=== PATIENT | male | born 1945 | race Caucasian/White ===

== ENCOUNTER 2016-08-08 10:36 | Inpatient (IN) | payer MEDICARE, OTHER ==
[2016-08-08 11:08] LABS: Hematocrit 40.3 % (42.0-52.0); Hemoglobin 12.7 gm/dL (13.5-18.0); Mean Cell Volume 85.9 fl (78-100); Mean Corpuscular Hemoglobin 27.1 pg (27-31); Mean Corpuscular Hgb Conc 31.5 g/dl (32-36); Mean Platelet Volume 9.2 fl (6.0-9.5); Neutrophil # 4.1 K/mm3 (1.3-6.0); Neutrophil % 70.8 % (42-75.0); Platelet Count 178 K/mm3 (150-450); Red Blood Count 4.69 M/mm3 (4.7-6.0); Red Cell Distribution Width 16.3 % (11.5-14.0); White Blood Count 5.8 K/mm3 (4.0-10.5)
[2016-08-08 11:27] LABS: Troponin I Less than 0.017 ng/ml (0.00-0.10)
[2016-08-08 11:30] LABS: Albumin * 3.4 gm/dl (3.4-5.0); Anion Gap 9.6 mmol/L (6.8-13.8); BUN/Creatinine Ratio 18.3 (9.0-21.6); Bilirubin, Total 0.6 mg/dL (0.0-1.1); Ca. Corrected For Albumin 8.7 mg/dL (8.4-10.2); Calcium * 8.5 mg/dL (7.9-10.9); Carbon Dioxide 31.5 mmol/L (24-32.6); Potassium 3.1 mmol/L (3.4-4.6); Total Protein 7.6 gm/dL (6.2-8.2)
[2016-08-08 11:31] LABS: BNP * 1757 pg/mL (5-350)
--- NOTE | 2016-08-08 11:35 | ERNOTE ---
Medical Problem HPI - Narrative Date of Service: 08/08/16 - General Chief Complaint: Fall Time Seen by Provider: 08/08/16 10:55 Source: patient, family, RN notes reviewed, old records Exam Limitations: clinical condition - Immun/Allergies/Home Medications Immunizations: IMMUNIZATION HX Immunizations Up to Date Yes History of Influenza Vaccine No Hx Pneumococcal Vaccination No Allergies/Adverse Reactions: Allergies No Known Allergies Allergy (Verified 08/08/16 10:46) Home Medications: HOME MEDICATIONS ALPRAZolam [Xanax] 1 mg PO TID PRN 07/10/14 [Last Taken Unknown] Aspirin 325 mg PO DAILY 07/10/14 [Last Taken Unknown] Glimepiride [Amaryl] 8 mg PO DAILY 07/10/14 [Last Taken Unknown] Loratadine [Claritin] 10 mg PO DAILY 07/10/14 [Last Taken Unknown] Simvastatin [Zocor] 20 mg PO DAILY 07/10/14 [Last Taken Unknown] metFORMIN HCL [Glucophage] 1,000 mg PO BID 07/10/14 [Last Taken Unknown] Amitriptyline HCl [Elavil] 50 mg PO HS 05/24/15 [Last Taken Unknown] Fluticasone Furoate [Veramyst] 55 mcg NS DAILY 05/24/15 [Last Taken Unknown] Potassium Chloride [K-Dur] 20 meq PO DAILY 05/24/15 [Last Taken Unknown] Pramipexole Di-HCl [Pramipexole ER] 4.5 mg PO HS 05/24/15 [Last Taken Unknown] Topiramate [Topamax] 100 mg PO DAILY 05/24/15 [Last Taken Unknown] buPROPion HCL [Wellbutrin XL] 150 mg PO DAILY 05/24/15 [Last Taken Unknown] oxyCODONE HCL [Oxycodone] 20 mg PO PRN PRN 05/24/15 [Last Taken Unknown] Furosemide [Lasix] 240 mg PO DAILY 05/16/16 [Last Taken Unknown] Clotrimazole/Betamet Diprop [Lotrisone Cream] 1 appl TP BID 08/08/16 [Last Taken Unknown] Hydrocortisone Acetate 30 mg RC BID PRN 08/08/16 [Last Taken Unknown] Ipratropium/Albuterol Sulfate [Iprat-Albut 0.5-3(2.5) mg/3 ml] 3 ml IH QID PRN 08/08/16 [Last Taken Unknown] Omeprazole [Prilosec] 20 mg PO DAILY 08/08/16 [Last Taken Unknown] Pregabalin [Lyrica] 75 mg PO BID 08/08/16 [Last Taken Unknown] sitaGLIPtin PHOSPHATE [Januvia] 100 mg PO DAILY 08/08/16 [Last Taken Unknown] - History of Present History Narrative: Elliott is a 70-year-old male brought to the emergency department from his home by ambulance for recurrent falls over the past week. He denies any specific injury , but reports generalized aches and pains. He also reports that he is not sleeping at night and cannot stay awake for any length of time during the day. He has a CPAP machine but has not been using it as directed. He denies any cough or fevers. He is being seen in the wound clinic for a chronic left lower leg wound. His SpO2 was 84% on room air when EMS arrived at his home. Review of Systems - Review of Systems Constitutional: Present: fatigue, malaise, decreased activity level. Absent: recent illness, fever, chills EYE: Present: no symptoms reported ENT: Present: no symptoms reported Respiratory: Absent: shortness of breath, cough Cardiology: Present: edema. Absent: chest pain, syncope Gastrointestinal/Abdominal: Absent: vomiting, diarrhea, abdominal pain, eating less, drinking less Genitourinary: Present: no symptoms reported Musculoskeletal: Present: muscle pain. Absent: neck pain, joint swelling Skin: Absent: lesions, lumps Neurological: Absent: headache, dizziness/light-headedness Endocrine: Present: no symptoms reported Hematologic/Lymphatic: Present: no symptoms reported Psych: Absent: anxiety, depressed - Patient's Past Medical History Patient History - Medical: Diabetes Type 2, Obesity Patient History - Cardiac/Respiratory: Hypertension, Hyperlipidemia, CPAP/BiPAP Home Use, Sleep Apnea Patient History - Cancer: Prostate Patient History - Surgical Procedures: Cancer Surgery, Colonoscopy, T & A, Other - Hemorrhoidectomy, Orthopedic - ORIF left ankle 2006, Urology - Prostatectomy Patient History - Other: None - Family History Father Family History - Medical: Mother Family History - Medical: , History Unknown Family History - Cardiac/Respiratory: History Unknown - Social History Living Situations: spouse Abuse History: No History of abuse Psych History: No pertinent hx Does anyone smoke in the home?: Yes Smoking Status: Current every day smoker Cigarettes Packs Per Day: 0.3 Have you smoked in the past 12 months: Yes Alcohol Use: occasionally Drug Use: none - Immunizations Immunizations Up to Date: Yes Hx Pneumococcal Vaccination: No History of Influenza Vaccine: No Physical Exam - Physical Exam General Appearance: Present: no apparent distress, obese, sleeping/easy to arouse, other - Poor hygiene, very dirty Respiratory: Present: chest nontender, accessory muscle use, decreased breath sounds, expiration (prolonged) Cardiovascular/Chest: Present: regular rate, rhythm, no murmur. Absent: normal peripheral pulses Peripheral Pulses: N=norm/S=strong/W=weak/B=bound/A=absent: Dorsalis-pedis (R): Weak, Dorsalis-pedis (L): Weak Gastrointestinal/Abdominal: Present: normal bowel sounds, nontender, distended Extremity Exam: Present: non-tender, pedal edema, extremity edema - severe pitting edema to bilateral lower legs Neurological Exam: Present: oriented, normal mood/affect, no motor/sensory deficits, other - somnolent, arouses easily and answers questions appropriately but falls asleep during conversation Skin Exam: Present: normal color, warm/dry ED Progress - Results and Orders Patient's Lab Results:: I have reviewed the patient's lab results. - Vital Signs Patient's Vital Signs:: I have reviewed the patient's vital signs. Vital Signs: Vital Signs 08/08/16 10:39 Temperature 36.6 C Pulse Rate 91 Respiratory 19 Rate O2 Sat by Pulse 99 Oximetry - EKG EKG: NSR, premature ventricular contraction, other - New 1st degree AVB EKG read: Reviewed by me - X-Ray X-Ray #1 X-Ray: chest Interpretation: Reviewed by me X-ray Comments: TECHNIQUE: Single portable AP view of the chest was obtained at 1206 hours. COMPARISONS: 05/24/2015 FINDINGS: Chest Single View *: Hypoinflated lungs. Bilateral basilar opacities are suggested. Increased vascular and peripheral lung markings are present. No pneumothorax or pleural fluid collections apparent. Large cardiomegaly, grossly stable. Somewhat prominent appearance of the right paratracheal region. Trachea is in normal position given patient positioning. Osseous structures are grossly intact. IMPRESSION: 1. Bilateral basilar opacities suggestive of atelectasis versus pneumonia. 2. Pulmonary vascular congestion/interstitial edema suggested. 3. Large cardiomegaly. 4. Prominence of the right paratracheal region, which could be related to systemic venous congestion but consider lymphadenopathy. Electronically signed by Gregory Meredith M.D.. - Progress/Reassessment Chief Complaint: Fall Progress:: Unchanged Plan - Plan Plan: Patient's SpO2 has been 100% with O2 at 1 liter despite EMS report of hypoxia on their arrival. Patient has continued to be somnolent with his respiratory rate dropping as low as 7 while he is sleeping, but he is still maintaining his O2 sat. His blood gas showed a mild respiratory acidosis, he has no previous available for comparison. His CHF has worsened with his BNP currently at 1755 when it was only 211 approximately a year ago. His chest xray shows pulmonary congestion/interstitial edema, as well as bibasilar atelectasis vs. infiltrates. His lab work is otherwise stable. Patient's PCP, Dr. Vásquez, contacted regarding admission. Will admit acute status to med/surg for CHF and possible pneumonia. Patient's living situation is very concerning as he lives at home with his , who is also in frail health, and he has been falling frequently and appears to not be caring for himself well given his dirty condition. Departure - Departure Clinical Impression: Frequent falls, Somnolence Congestive heart failure Qualifiers: Congestive heart failure type: unspecified congestive heart failure type Congestive heart failure chronicity: acute on chronic Qualified Code(s): I50.9 - Heart failure, unspecified Pneumonia Qualifiers: Pneumonia type: due to unspecified organism Laterality: bilateral Lung location : lower lobe of lung Qualified Code(s): J18.9 - Pneumonia, unspecified organism Disposition: [facility] Condition: Fair Referrals: Jonathan Vásquez DO [Staff Physician] -
--- OUTSIDE RECORDS SUMMARY | 2016-08-08 11:49 | XMS REPORT | Continuity of Care Document ---
:1945 Author Organization [facility] ([facility]) Address [address] [place] [address] Phone [phone] Care Team Providers Name Role Phone Jonathan Vásquez Primary Care Provider [phone] Source Comments This disclosure is being made pursuant to the Care Everywhere program, applicable federal and state laws, and may not contain all informaitonavailable regarding this patient.[facility] ([facility]) Active Allergies and Adverse Reactions Allergen Noted Date Severity Reactions Comments Hay Fever And Allergy Relief 11/27/2014 Rhinorrhea Current Medications Prescription Sig. Disp. Refills Start Date End Date Status gabapentin PO Take by mouth 3 Active times daily. levofloxacin PO Take by mouth 2 Active times daily. omeprazole PO Take by mouth 2 Active times daily. docusate PO Take by mouth 2 Active times daily. aspirin 325 mg EC tablet Take 325 mg by mouth Active daily. FUROSEMIDE (LASIX PO) Take by mouth Active daily. PRAMIPEXOLE DI-HCL Take by mouth at Active (MIRAPEX PO) bedtime. ZOLPIDEM TARTRATE Take by mouth at Active (AMBIEN PO) bedtime. melatonin PO Take by mouth at Active bedtime. morpHINE 15 mg tablet Take 15 mg by mouth Active as needed. OXYCODONE 20 mg 10/31/2014 Active immediate release tablet GLIMEPIRIDE 4 mg tablet 11/11/2014 Active METFORMIN 500 mg tablet Take 500 mg by mouth 09/30/2014 Active 2 times daily OMEPRAZOLE 20 mg enteric 10/22/2014 Active coated capsule SIMVASTATIN 20 mg tablet 09/11/2014 Active fluticasone 50 Use 2 Sprays into Active mcg/Actuation nasal both nostrils daily spray triamcinolone 0.1 % Apply topically 2 Active cream times daily Apply a thin layer to affected area. 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 Unspecified osteomyelitis, ankle and foot 06/16/2007 Pain in limb 06/10/2007 Immunizations Name Dates Previously Given Next Due Hepatitis B, unspecified 01/14/2007 Social History Tobacco Use Types Packs/Day Years Used Date Never Smoker Last Filed Vital Signs Vital Sign Reading Time Taken Blood Pressure 132/71 11/27/2014 12:02 PM CDT Pulse 91 11/27/2014 12:02 PM CDT Temperature 36.8 C (98.2 F) 11/27/2014 12:02 PM CDT Respiratory Rate 18 12/13/2007 9:51 AM CDT Height 1.803 m (5' 10.98") 11/27/2014 12:02 PM CDT Weight 152.6 kg (336 lb 6.8 oz) 11/27/2014 12:02 PM CDT Body Mass Index 46.94 11/27/2014 12:02 PM CDT Oxygen Saturation 98% 12/13/2007 9:51 AM CDT Plan of Care Health Maintenance Due Date Last Done Comments HCV Screening 1945 Tdap Vaccine 10/03/1955 Lipid Disorder Screening 1962 Td Vaccine 1962 Colonoscopy 1994 Prostate Cancer Screening 1994 Zoster Vaccine 2004 Hepatitis B Vaccine (2 of 3 - Primary Series) 02/11/2007 01/14/2007 Pneumococcal Vaccine (1 of 2 - PCV13) 2009 Influenza Vaccine: Seasonal (#1) 10/15/2015 Results from Last 3 Months Not on file
[2016-08-08 12:20] LABS: Urine Bilirubin Negative (NEGATIVE); Urine Blood Negative /ul (NEGATIVE); Urine Ketone Negative (NEGATIVE); Urine Nitrite Negative (NEGATIVE); Urine Protein Negative (NEGATIVE); Urine Specific Gravity 1.025 SP.GR. (1.005-1.030); Urine Urobilinogen Normal (NORMAL); Urine pH 5.5 pH (5.0-7.0)
[2016-08-08 12:29] LABS: Urine Appearance Clear; Urine Bacteria None Seen; Urine Color Dark Yellow; Urine RBC None Seen /hpf (0-5); Urine WBC None Seen /hpf (0-5)
--- OUTSIDE RECORDS SUMMARY | 2016-08-08 13:25 | XMS REPORT | Continuity of Care Document ---
:1945 Author Organization [facility] ([facility]) Address [address] [place] [address] Phone [phone] Care Team Providers Name Role Phone Jonathan Vásquez Primary Care Provider [phone] Source Comments This disclosure is being made pursuant to the Care Everywhere program, applicable federal and state laws, and may not contain all informaitonavailable regarding this patient.[facility] ([facility]) Active Allergies and Adverse Reactions Allergen [...]
[2016-08-08] MEDS ORDERED: AZITHROMYCIN 250 MG TABLET PO ONE (13:49)
[2016-08-08] MEDS ORDERED: AZITHROMYCIN 250 MG TABLET ONE (13:50)
[2016-08-08] MEDS ORDERED: POTASSIUM CHLORIDE 20 MEQ TABLET.SA PO ONE ×2 (15:32→19:26)
--- NOTE | 2016-08-08 15:32 | HP ---
Chief Complaint - Chief Complaint Date of Service: 08/08/16 Time of Service: 15:32 Chief Complaint: Fatigue, shortness of breath, increased weight History of Present Illness: Elliott is a 70 yo male that presented to the [facility] ER with increasing falls, weakness, and somnolence. He has had more falls from dizziness and weakness. His reports he just falls asleep anywhere and has fallen because of these episodes as well. No fever, chills, worsening cough. He has a CPAP machine at home but does not use it because he cannot fall asleep with the mask on. - Patient's Past Medical History Patient History - Medical: Diabetes Type 2, Obesity Patient History - Cardiac/Respiratory: CHF, COPD, Hypertension, Hyperlipidemia, CPAP/BiPAP Home Use, Sleep Apnea Patient History - Cancer: Prostate Patient History - Surgical Procedures: Cancer Surgery, Colonoscopy, T & A, Other , Orthopedic, Urology Patient History - Other: None - Family History Father Family History - Medical: , History Unknown Family History - Cardiac/Respiratory: History Unknown Family History - Cancer: History Unknown Mother Family History - Medical: , History Unknown Family History - Cardiac/Respiratory: History Unknown Family History - Cancer: History Unknown - Social History Living Situations: spouse Abuse History: No History of abuse Psych History: No pertinent hx Does anyone smoke in the home?: Yes Smoking Status: Current every day smoker Cigarettes Packs Per Day: 0.3 Have you smoked in the past 12 months: Yes Do you dip or chew tobacco: No Patient requests Smoking Cessation Consult: No Initiate information on Smoking Cessation: No Alcohol Use: occasionally Drug Use: none - Immunizations Immunizations Up to Date: Yes Hx Pneumococcal Vaccination: No History of Influenza Vaccine: No Review Of Systems (GEN) - Review of Systems Generalized/Overall Review: Present: Weakness, Fatigue, Weight gain. Absent: Chills, Fever EENTM: Present: No Symptoms Reported Respiratory: Present: No Symptoms Reported Cardiac: Present: Edema Abdominal: Present: No Symptoms Reported Genitourinary: Present: No Symptoms Reported Musculoskeletal: Present: No Symptoms Reported Neurological: Present: No Symptoms Reported Skin: Present: No Symptoms Reported Endocrine: Present: No Symptoms Reported Immunizations: IMMUNIZATION HX Immunizations Up to Date Yes History of Influenza Vaccine No Hx Pneumococcal Vaccination No Allergies/Adverse Reactions: Allergies Allergy/AdvReac Type Severity Reaction Status Date / Time topiramate [From Topamax] AdvReac Intermediate lethargy Verified 08/21/16 10:52 Home Medications: HOME MEDICATIONS ALPRAZolam [Xanax] 1 mg PO TID PRN 07/10/14 [Last Taken Unknown] Aspirin 325 mg PO DAILY 07/10/14 [Last Taken Unknown] Glimepiride [Amaryl] 8 mg PO DAILY 07/10/14 [Last Taken Unknown] Loratadine [Claritin] 10 mg PO DAILY 07/10/14 [Last Taken Unknown] Simvastatin [Zocor] 20 mg PO HS 07/10/14 [Last Taken Unknown] metFORMIN HCL [Glucophage] 1,000 mg PO BID 07/10/14 [Last Taken Unknown] Amitriptyline HCl [Elavil] 50 mg PO HS 05/24/15 [Last Taken Unknown] Fluticasone Furoate [Veramyst] 2 sprays NS DAILY 05/24/15 [Last Taken Unknown] Potassium Chloride [K-Dur] 20 meq PO DAILY 05/24/15 [Last Taken Unknown] buPROPion HCL [Wellbutrin Xl] 150 mg PO DAILY 05/24/15 [Last Taken Unknown] oxyCODONE HCL [Oxycodone] 20 mg PO Q6H PRN 05/24/15 [Last Taken Unknown] Clotrimazole/Betamet Diprop [Lotrisone Cream] 1 appl TP BID 08/08/16 [Last Taken Unknown] Hydrocortisone Acetate 30 mg RC BID PRN 08/08/16 [Last Taken Unknown] Ipratropium/Albuterol Sulfate [Iprat-Albut 0.5-3(2.5) mg/3 ml] 3 ml IH QID PRN 08/08/16 [Last Taken Unknown] Omeprazole [Prilosec] 20 mg PO DAILY 08/08/16 [Last Taken Unknown] Pregabalin [Lyrica] 75 mg PO BID 08/08/16 [Last Taken Unknown] sitaGLIPtin PHOSPHATE [Januvia] 100 mg PO DAILY 08/08/16 [Last Taken Unknown] Bumetanide 2 mg PO BID PRN #60 tablet 08/10/16 [Last Taken Unknown] Calcium Carbonate [Calcium] 500 mg PO DAILY 08/20/16 [Last Taken Unknown] Furosemide [Lasix] 240 mg PO DAILY 08/20/16 [Last Taken Unknown] Pramipexole Di-HCl [Mirapex] 4.5 mg PO HS 08/20/16 [Last Taken Unknown] Zolpidem Tartrate [Ambien] 5 mg PO HS 08/20/16 [Last Taken Unknown] predniSONE [Prednisone] 20 mg PO DAILY 08/20/16 [Last Taken Unknown] Exam - Exam Vital Signs: Vital Signs - Last Taken Temp 36.4 C L 08/08/16 14:38 Pulse 84 08/08/16 14:38 Resp 12 08/08/16 14:38 BP 125/66 08/08/16 14:38 Pulse Ox 100 08/08/16 14:38 Constitutional: Present: Somnolent Eye Exam: bilateral eye: normal inspection Respiratory: Present: decreased breath sounds Cardiovascular/Chest: Present: regular rate, rhythm, edema - 3+ Abdomen: Present: Normal bowel sounds, soft, nontender, nondistended Skin Exam: Present: normal color, warm/dry, no cyanosis Diagnostic Studies: Laboratory Results WBC 5.8 K/mm3 (4.0-10.5) 08/08/16 11:02 RBC 4.69 M/mm3 (4.7-6.0) L 08/08/16 11:02 Hgb 12.7 gm/dL (13.5-18.0) L 08/08/16 11:02 Hct 40.3 % (42.0-52.0) L 08/08/16 11:02 MCV 85.9 fl (78-100) 08/08/16 11:02 MCH 27.1 pg (27-31) 08/08/16 11:02 MCHC 31.5 g/dl (32-36) L 08/08/16 11:02 RDW 16.3 % (11.5-14.0) H 08/08/16 11:02 Plt Count 178 K/mm3 (150-450) 08/08/16 11:02 MPV 9.2 fl (6.0-9.5) 08/08/16 11:02 Immature Gran % (Auto) 0.20 % (0.001-0.429) 08/08/16 11:02 Immature Gran # (Auto) 0.01 K/mm3 (0.000-0.0310) 08/08/16 11:02 Neutrophils % 70.8 % (42-75.0) 08/08/16 11:02 Lymphocytes % 19.5 % (20-51) L 08/08/16 11:02 Monocytes % 6.4 % (0.0-9) 08/08/16 11:02 Eosinophils % 2.8 % (0.0-3.0) 08/08/16 11:02 Basophils % 0.3 % (0.0-1.0) 08/08/16 11:02 Nucleated RBC % 0.0 k/mm3 (0-1) 08/08/16 11:02 Neutrophils # 4.1 K/mm3 (1.3-6.0) 08/08/16 11:02 Lymphocytes # 1.1 k/mm3 (1.5-3.5) L 08/08/16 11:02 Monocytes # 0.4 k/mm3 (0.0-1.0) 08/08/16 11:02 Eosinophils # 0.2 k/mm3 (0.0-0.7) 08/08/16 11:02 Absolute Basophils 0.0 k/mm3 (0.0-0.1) 08/08/16 11:02 pCO2 53.9 mmHg (35.0-48.0) H 08/08/16 11:05 pO2 60.2 mmHg (83.0-108.0) L 08/08/16 11:05 HCO3 27.2 mmol/L (21.0-28.0) 08/08/16 11:05 Total CO2 28.9 mmol/L (19.0-24.0) H 08/08/16 11:05 Base Excess 0.3 mmol/L (-2.0-3.0) 08/08/16 11:05 ABG pH 7.32 (7.35-7.45) L 08/08/16 11:05 ABG O2 Sat (Measured) 88.7 % (94.0-98.0) L 08/08/16 11:05 Sodium 142 mmol/L (132-142) 08/08/16 11:02 Plasma Sodium 142 mmol/L (130-142) 08/08/16 11:02 Potassium 3.1 mmol/L (3.4-4.6) L 08/08/16 11:02 Chloride 104 mmol/L (97-106) 08/08/16 11:02 Carbon Dioxide 31.5 mmol/L (24-32.6) 08/08/16 11:02 Anion Gap 9.6 mmol/L (6.8-13.8) 08/08/16 11:02 BUN 26 mg/dL (6-23) H 08/08/16 11:02 Creatinine 1.42 mg/dL (0.4-1.4) H 08/08/16 11:02 Est GFR (Non-Af Amer) 52 mL/min (60-130) L 08/08/16 11:02 BUN/Creatinine Ratio 18.3 (9.0-21.6) 08/08/16 11:02 Random Glucose 116 mg/dL (70-110) H 08/08/16 11:02 Lactic Acid, Venous 1.1 mmol/L (0.4-1.9) 08/08/16 11:02 Calcium 8.5 mg/dL (7.9-10.9) 08/08/16 11:02 Calcium Adj for Albumin 8.7 mg/dL (8.4-10.2) 08/08/16 11:02 Total Bilirubin 0.6 mg/dL (0.0-1.1) 08/08/16 11:02 AST 23 U/L (0-48) 08/08/16 11:02 ALT 23 U/L (19-67) 08/08/16 11:02 Alkaline Phosphatase 96 U/L (50-170) 08/08/16 11:02 Troponin I Less than 0.017 ng/ml (0.00-0.10) 08/08/16 11:02 B-Natriuretic Peptide 1757 pg/mL (5-350) H 08/08/16 11:02 Total Protein 7.6 gm/dL (6.2-8.2) 08/08/16 11:02 Albumin 3.4 gm/dl (3.4-5.0) 08/08/16 11:02 Urine Color Dark yellow 08/08/16 11:20 Urine Appearance Clear 08/08/16 11:20 Urine pH 5.5 pH (5.0-7.0) 08/08/16 11:20 Ur Specific [place] 1.025 SP.GR. (1.005-1.030) 08/08/16 11:20 Urine Protein Negative mg/dL (NEGATIVE) 08/08/16 11:20 Urine Glucose (UA) Negative mg/dL (NEGATIVE) 08/08/16 11:20 Urine Ketones Negative mg/dL (NEGATIVE) 08/08/16 11:20 Urine Blood Negative /ul (NEGATIVE) 08/08/16 11:20 Urine Nitrate Negative (NEGATIVE) 08/08/16 11:20 Urine Bilirubin Negative mg/dl (NEGATIVE) 08/08/16 11:20 Urine Urobilinogen Normal EU/dl (NORMAL) 08/08/16 11:20 Ur Leukocyte Esterase Negative /ul (NEGATIVE) 08/08/16 11:20 Urine RBC None seen /hpf (0-5) 08/08/16 11:20 Urine WBC None seen /hpf (0-5) 08/08/16 11:20 Ur Epithelial Cells None seen /hpf (0-5) 08/08/16 11:20 Urine Bacteria None seen (NONE) 08/08/16 11:20 Urine Culture Comments No culture indicated 08/08/16 11:20 Assessment/Plan - Assessment/Plan (1) Altered mental status Assessment: Patient with altered mental status, hypercapnea without acidosis, lower extremity edema. Causes may be CHF and will diurese, COPD (however without acidosis this appears to be chronic and compensated and not likely cause to altered mentation, medication (he is on multiple sedating medications), and Obstructive sleep apnea with CPAP non-compliance. Will use CPAP while in hospital. Problem: Acute Qualifiers: Altered mental status type: somnolence Qualified Code(s): R40.0 - Somnolence (2) Frequent falls Problem: Acute (3) Lethargy Problem: Acute
[2016-08-08] MEDS ORDERED: predniSONE 20 MG TABLET PO ONE (15:33)
[2016-08-08] MEDS ORDERED: ALBUTEROL SULFATE/IPRATROPIUM 3 ML NEBU IH PRN (15:34)
[2016-08-08] MEDS ORDERED: FUROSEMIDE 10 MG/ML VIAL IV ONE (15:34)
[2016-08-08] MEDS ORDERED: oxyCODONE HCL 5 MG TABLET PO PRN ×2 (15:34→20:05)
[2016-08-08] MEDS ORDERED: POTASSIUM CHLORIDE 20 MEQ TABLET.SA ONE (20:34)
[2016-08-08] MEDS: SIMVASTATIN 20 MG TABLET PO SCH (20:54)
[2016-08-08] MEDS: AMITRIPTYLINE HCL 50 MG TABLET PO SCH (20:54)
[2016-08-08] MEDS: PREGABALIN 75 MG CAPSULE PO SCH (20:56)
[2016-08-08] MEDS: ALPRAZolam 1 MG TABLET PO PRN (21:28)
[2016-08-08] MEDS: rOPINIRole HCL 1 MG TABLET PO SCH (21:28)
[2016-08-09] MEDS: PANTOPRAZOLE SODIUM 20 MG TABLET.DR PO SCH (07:07)
[2016-08-09] MEDS: PRAMIPEXOLE DI HCL 4.5 MG PO SCH ×2 (07:45→21:13)
[2016-08-09] MEDS ORDERED: POTASSIUM CHLORIDE 20 MEQ TABLET.SA PO SCH (09:00)
[2016-08-09] MEDS: ASPIRIN 325 MG TABLET.DR PO SCH (09:02)
[2016-08-09] MEDS: sitaGLIPtin PHOSPHATE 50 MG TABLET PO SCH (09:02)
[2016-08-09] MEDS: GLIMEPIRIDE 4 MG TABLET PO SCH (09:02)
[2016-08-09] MEDS: POTASSIUM CHLORIDE 20 MEQ TABLET.SA PO SCH (09:03)
[2016-08-09] MEDS: predniSONE 20 MG TABLET PO SCH (09:03)
[2016-08-09] MEDS: buPROPion HCL 150 MG TAB.SR.24H PO SCH (09:03)
[2016-08-09] MEDS: PREGABALIN 75 MG CAPSULE PO SCH ×2 (09:08→21:14)
[2016-08-09] MEDS ORDERED: FUROSEMIDE 10 MG/ML VIAL IV ONE ×2 (09:51→11:15)
[2016-08-09 10:13] LABS: Albumin * 3.3 gm/dl (3.4-5.0); Anion Gap 8.5 mmol/L (6.8-13.8); BUN/Creatinine Ratio 19.2 (9.0-21.6); Bilirubin, Total 0.4 mg/dL (0.0-1.1); Ca. Corrected For Albumin 8.9 mg/dL (8.4-10.2); Calcium * 8.7 mg/dL (7.9-10.9); Carbon Dioxide 33.4 mmol/L (24-32.6); Potassium 3.9 mmol/L (3.4-4.6); Total Protein 7.7 gm/dL (6.2-8.2)
--- NOTE | 2016-08-09 10:47 | PN ---
Subjective - Date and Time Seen Date: 08/09/16 Time: 10:43 Subjective Narrative: Reports feeling better. He does not recall having good urine output, but chart indicates 1L of urine out after lasix dose yesterday afternoon. He reports fatigue, shortness of breath, and edema that are still a little worse than his usual. Objective - Vitals Vitals: Last Vital Signs Temp 37 C 08/09/16 07:46 Pulse 88 08/09/16 07:46 Resp 24 H 08/09/16 07:46 BP 132/68 08/09/16 07:46 Pulse Ox 94 08/09/16 07:46 - Abnormal Lab Findings Abnormal Lab Findings: Abnormal Lab Results 08/09/16 Range/Units 09:53 Sodium 143 H (132-142) mmol/L Plasma Sodium 144 H (130-142) mmol/L Carbon Dioxide 33.4 H (24-32.6) mmol/L BUN 24 H (6-23) mg/dL Random Glucose 138 H (70-110) mg/dL Albumin 3.3 L (3.4-5.0) gm/dl - Exam Constitutional: Present: Alert, Oriented x3, Cooperative ENT Exam: Present: hearing grossly normal Respiratory: Present: lungs clear, normal breath sounds, no respiratory distress Cardiovascular/Chest: Present: regular rate, rhythm, edema - 2+ Abdomen: Present: Normal bowel sounds, soft, nontender, no hepatospenomegaly Assessment/Plan - Problems/Diagnosis (1) Acute respiratory failure Problem: Acute Narrative: Acute respiratory failure, secondary to CHF exacerbation and COPD exacerbation. Feeling better. Will wean from oxygen. Give additional dose of lasix 100mg IV now and monitor response with strict I/O. Continue antibiotics and steroids for COPD exacerbation based on hypercapnea and hypoxia. May redose lasix later today if needed. Lungs are improved, patient is more awake then yesterday. Anticipate discharge in 1-2 days. Will attempt to find a home dose of diuretics to keep him stable. (2) CHF exacerbation Problem: Acute (3) COPD exacerbation Problem: Acute
[2016-08-09] MEDS ORDERED: MECLIZINE HCL 25 MG TABLET PO PRN (17:16)
[2016-08-09] MEDS ORDERED: rOPINIRole HCL 1 MG TABLET PO SCH (21:00)
[2016-08-09] MEDS: rOPINIRole HCL 1 MG TABLET PO SCH (21:06)
[2016-08-09] MEDS: AMITRIPTYLINE HCL 50 MG TABLET PO SCH (21:06)
[2016-08-09] MEDS: SIMVASTATIN 20 MG TABLET PO SCH (21:06)
[2016-08-10] MEDS: ALPRAZolam 1 MG TABLET PO PRN (01:40)
[2016-08-10] MEDS: PANTOPRAZOLE SODIUM 20 MG TABLET.DR PO SCH (06:50)
[2016-08-10] MEDS: sitaGLIPtin PHOSPHATE 50 MG TABLET PO SCH (08:52)
[2016-08-10] MEDS: ASPIRIN 325 MG TABLET.DR PO SCH (08:52)
[2016-08-10] MEDS: POTASSIUM CHLORIDE 20 MEQ TABLET.SA PO SCH (08:52)
[2016-08-10] MEDS: GLIMEPIRIDE 4 MG TABLET PO SCH (08:52)
[2016-08-10] MEDS: predniSONE 20 MG TABLET PO SCH (08:53)
[2016-08-10] MEDS: buPROPion HCL 150 MG TAB.SR.24H PO SCH (08:53)
[2016-08-10] MEDS: PREGABALIN 75 MG CAPSULE PO SCH (08:59)
[2016-08-10] MEDS ORDERED: BUMETANIDE 1 MG TABLET PO ONE (11:15)
[2016-08-10 18:16] VITALS: BP 140/69
--- NOTE | 2016-08-10 18:46 | DS ---
(1) Acute respiratory failure Diagnosis(s): Elliott was admitted with acute respiratory failure with hypercapnea, although this may have been more acute on chronic with evidence of chronic compensation given there was no respiratory acidosis. Breathing improved with diuresis. Problem: Acute Qualifiers: Respiratory failure complication: hypercapnia Qualified Code(s): J96.02 - Acute respiratory failure with hypercapnia (2) CHF exacerbation Diagnosis(s): Patient with shortness of breath and lower extremity edema worsening. He was treated with IV lasix and then give oral bumex which he thought worked better than his oral lasix. Will discharge to home on oral bumex for control of chronic fluid state. He will follow up in a week in clinic to discuss if he feels lasix vs bumex works better. Problem: Acute Qualifiers: Congestive heart failure type: diastolic Qualified Code(s): I50.33 - Acute on chronic diastolic (congestive) heart failure (3) COPD exacerbation Problem: Acute (4) Altered mental status Diagnosis(s): Somnolence improved with diuresis. Patient was alert and doing well at the time of discharge. Encouraged better CPAP use. Unclear cause to altered mental status. Potentially from acute on chronic respiratory failure with worse hypercapnea from his baseline, however there was no evidence of respiratory acidosis so this was likely more chronic and compensated. However it still may have been worse than his baseline and contributed to somnolence with presence of hypercapnea. This may also be due to EMELYN, recommended better CPAP compliance. May also be due to medications as he takes several sedating medications at bedtime. Problem: Acute Qualifiers: Altered mental status type: somnolence Qualified Code(s): R40.0 - Somnolence Procedures Performed: none Discharge Disposition: Home self care Disposition: [facility] Condition: Fair Discharge Activity: Activity as tolerated Discharge Diet: Consistent carbs, Low salt Referrals: Jonathan Vásquez DO [Staff Physician] - One Week Problem Oriented Discharge Instructions to Patient/Family: CHF Patient Instructions Additional Patient Instructions (free text): [facility]. Please fax orders, face to face, H&P upon discharge. Medications sent to [facility] Stop Lasix (Furosemide). Take Bumex (Bumetinide) once every day to prevent fluid retention. May take a second dose at least 4 hours later as needed for extra removal of fluid. Prescriptions (Any new or edited meds): Bumetanide 2 mg PO BID PRN #60 tablet PRN Reason: edema Complete Home Medications List: Complete Home Medication List: ALPRAZolam [Xanax] 1 mg PO TID PRN 07/10/14 Aspirin 325 mg PO DAILY 07/10/14 Glimepiride [Amaryl] 8 mg PO DAILY 07/10/14 Loratadine [Claritin] 10 mg PO DAILY 07/10/14 Simvastatin [Zocor] 20 mg PO HS 07/10/14 metFORMIN HCL [Glucophage] 1,000 mg PO BID 07/10/14 Amitriptyline HCl [Elavil] 50 mg PO HS 05/24/15 Fluticasone Furoate [Veramyst] 2 sprays NS DAILY 05/24/15 Potassium Chloride [K-Dur] 20 meq PO DAILY 05/24/15 buPROPion HCL [Wellbutrin Xl] 150 mg PO DAILY 05/24/15 oxyCODONE HCL [Oxycodone] 20 mg PO Q6H PRN 05/24/15 Clotrimazole/Betamet Diprop [Lotrisone Cream] 1 appl TP BID 08/08/16 Hydrocortisone Acetate 30 mg RC BID PRN 08/08/16 Ipratropium/Albuterol Sulfate [Iprat-Albut 0.5-3(2.5) mg/3 ml] 3 ml IH QID PRN 08/08/16 Omeprazole [Prilosec] 20 mg PO DAILY 08/08/16 Pregabalin [Lyrica] 75 mg PO BID 08/08/16 sitaGLIPtin PHOSPHATE [Januvia] 100 mg PO DAILY 08/08/16 Bumetanide 2 mg PO BID PRN #60 tablet 08/10/16 Calcium Carbonate [Calcium] 500 mg PO DAILY 08/20/16 Furosemide [Lasix] 240 mg PO DAILY 08/20/16 Pramipexole Di-HCl [Mirapex] 4.5 mg PO HS 08/20/16 Zolpidem Tartrate [Ambien] 5 mg PO HS 08/20/16 predniSONE [Prednisone] 20 mg PO DAILY 08/20/16
[2016-08-10] MEDS ORDERED: NYSTATIN 15 APPL BTL TP SCH (21:00)
== END 2016-08-10 20:37 | disposition home health service (06) | DRG 189 ==
LOC: ER 10:36 → MS 13:11
PROVIDERS: ADMIT Family Medicine; ATTEND Family Medicine
PROC: 4A033R1 Measurement of Arterial Saturation, Peripheral, Percutaneous Approach (ICD-10-PCS; principal; 2016-08-08)
DX: J96.00 Acute respiratory failure, unspecified whether with hypoxia or hypercapnia (principal); I50.33 Acute on chronic diastolic (congestive) heart failure; J44.1 Chronic obstructive pulmonary disease with (acute) exacerbation; R40.0 Somnolence; F17.210 Nicotine dependence, cigarettes, uncomplicated; E11.9 Type 2 diabetes mellitus without complications; E78.5 Hyperlipidemia, unspecified; I10 Essential (primary) hypertension; Z85.46 Personal history of malignant neoplasm of prostate; Z79.82 Long term (current) use of aspirin

== ENCOUNTER 2016-08-20 09:58 | Observation (INO) | payer MEDICARE, OTHER ==
--- OUTSIDE RECORDS SUMMARY | 2016-08-20 10:13 | XMS REPORT | Continuity of Care Document ---
:1945 Author Organization [facility] ([facility]) Address [address] [place] [address] Phone [phone] Care Team Providers Name Role Phone Jonathan Vásquez Primary Care Provider [phone] Source Comments This disclosure is being made pursuant to the Care Everywhere program, applicable federal and state laws, and may not contain all informaitonavailable regarding this patient.[facility] ([facility]) Active Allergies and Adverse Reactions Allergen [...]
[2016-08-20 10:34] LABS: Hematocrit 39.8 % (42.0-52.0); Hemoglobin 12.9 gm/dL (13.5-18.0); Mean Cell Volume 84.3 fl (78-100); Mean Corpuscular Hemoglobin 27.3 pg (27-31); Mean Corpuscular Hgb Conc 32.4 g/dl (32-36); Mean Platelet Volume 9.9 fl (6.0-9.5); Neutrophil # 5.6 K/mm3 (1.3-6.0); Neutrophil % 73.5 % (42-75.0); Platelet Count 192 K/mm3 (150-450); Red Blood Count 4.72 M/mm3 (4.7-6.0); White Blood Count 7.6 K/mm3 (4.0-10.5)
--- NOTE | 2016-08-20 10:39 | ERNOTE ---
Neuro HPI ER Record Presenting Symptoms: weakness Time Seen by Provider: 08/20/16 09:58 Source: patient Exam Limitations: no limitations Immunizations: IMMUNIZATION HX Immunizations Up to Date Yes History of Influenza Vaccine No Hx Pneumococcal Vaccination No Allergies/Adverse Reactions: Allergies Allergy/AdvReac Type Severity Reaction Status Date / Time No Known Allergies Allergy Verified 08/20/16 10:03 Home Medications: HOME MEDICATIONS ALPRAZolam [Xanax] 1 mg PO TID PRN 07/10/14 [Last Taken Unknown] Aspirin 325 mg PO DAILY 07/10/14 [Last Taken Unknown] Glimepiride [Amaryl] 8 mg PO DAILY 07/10/14 [Last Taken Unknown] Loratadine [Claritin] 10 mg PO DAILY 07/10/14 [Last Taken Unknown] Simvastatin [Zocor] 20 mg PO HS 07/10/14 [Last Taken Unknown] metFORMIN HCL [Glucophage] 1,000 mg PO BID 07/10/14 [Last Taken Unknown] Amitriptyline HCl [Elavil] 50 mg PO HS 05/24/15 [Last Taken Unknown] Fluticasone Furoate [Veramyst] 2 sprays NS DAILY 05/24/15 [Last Taken Unknown] Potassium Chloride [K-Dur] 20 meq PO DAILY 05/24/15 [Last Taken Unknown] Pramipexole Di-HCl [Pramipexole ER] 4.5 mg PO HS 05/24/15 [Last Taken Unknown] Topiramate [Topamax] 100 mg PO DAILY 05/24/15 [Last Taken Unknown] buPROPion HCL [Wellbutrin Xl] 150 mg PO DAILY 05/24/15 [Last Taken Unknown] oxyCODONE HCL [Oxycodone] 20 mg PO Q6H PRN 05/24/15 [Last Taken Unknown] Clotrimazole/Betamet Diprop [Lotrisone Cream] 1 appl TP BID 08/08/16 [Last Taken Unknown] Hydrocortisone Acetate 30 mg RC BID PRN 08/08/16 [Last Taken Unknown] Ipratropium/Albuterol Sulfate [Iprat-Albut 0.5-3(2.5) mg/3 ml] 3 ml IH QID PRN 08/08/16 [Last Taken Unknown] Omeprazole [Prilosec] 20 mg PO DAILY 08/08/16 [Last Taken Unknown] Pregabalin [Lyrica] 75 mg PO BID 08/08/16 [Last Taken Unknown] sitaGLIPtin PHOSPHATE [Januvia] 100 mg PO DAILY 08/08/16 [Last Taken Unknown] Azithromycin 250 mg PO DAILY #3 tablet 08/10/16 [Last Taken Unknown] Bumetanide 2 mg PO BID PRN #60 tablet 08/10/16 [Last Taken Unknown] Calcium Carbonate [Calcium] 500 mg PO DAILY 08/20/16 [Last Taken Unknown] Furosemide [Lasix] 240 mg PO DAILY 08/20/16 [Last Taken Unknown] Zolpidem Tartrate [Ambien] 5 mg PO HS 08/20/16 [Last Taken Unknown] predniSONE [Prednisone] 20 mg PO DAILY 08/20/16 [Last Taken Unknown] - History of Present Illness Narrative: Patient is here as he has difficulties staying awake. He states that it has been going on for weeks, happens multiple times a day no matter what he does. He denies any recent falls. when asked about sleep apnea and CPAP machine he states that he does not use it as 'it doesn't work'. He naps briefly intermittently during the night and day. He denies any focal weakness. the chart reveals a recent admission (08/08) for CHF exacerbation and possible pneumonia. He states that his head feels tight 'like he has a swim cap on' but no significant pain. - Character of Deficits New weakness: Present: general (diffuse) Additional Deficits: Present: vision problems - chronic, denies new Baseline Cognition: Present: alert, oriented x 4 Review of Systems - Review of Systems Constitutional: Present: fatigue. Absent: recent illness, fever EYE: Absent: vision changes ENT: Absent: sore throat Respiratory: Absent: shortness of breath Cardiology: Absent: chest pain Gastrointestinal/Abdominal: Absent: nausea, vomiting, abdominal pain Musculoskeletal: Absent: back pain, neck pain Neurological: Present: See HPI, headache, weakness. Absent: numbness - Patient's Past Medical History Patient History - Medical: Diabetes Type 2, Obesity Patient History - Cardiac/Respiratory: CHF, COPD, Hypertension, Hyperlipidemia, CPAP/BiPAP Home Use, Sleep Apnea Patient History - Cancer: Prostate Patient History - Surgical Procedures: Cancer Surgery, Colonoscopy, T & A, Other , Orthopedic, Urology Patient History - Other: None - Family History Father Family History - Medical: , History Unknown Family History - Cardiac/Respiratory: History Unknown Family History - Cancer: History Unknown Mother Family History - Medical: , History Unknown Family History - Cardiac/Respiratory: History Unknown Family History - Cancer: History Unknown - Social History Living Situations: home Abuse History: No History of abuse Psych History: No pertinent hx Does anyone smoke in the home?: Yes Alcohol Use: occasionally Drug Use: none - Immunizations Immunizations Up to Date: Yes Hx Pneumococcal Vaccination: No History of Influenza Vaccine: No Physical Exam - Physical Exam General Appearance: Present: wd/wn, no apparent distress, lethargic - patient is easily aroused but falls back to sleep after a couple of minutes, at times during conversation, obese Eye Exam: Normal inspection: bilateral, PERRL: bilateral, EOMI: bilateral Ears, Nose, Throat: Present: normal ENT inspection, normal pharynx, dry mucous membranes Neck: Present: nontender, supple, full range of motion Respiratory: Present: no respiratory distress, normal breath sounds, no accessory muscle use, lungs clear, other - good air movement when awake, hypoventilation when falling asleep Cardiovascular/Chest: Present: regular rate, rhythm, no murmur Gastrointestinal/Abdominal: Present: normal bowel sounds, nontender, nondistended, soft Extremity Exam: Present: extremity edema - chronic bilateral edema with chronic statis dermatitis Neurological Exam: Present: oriented, normal mood/affect, no motor/sensory deficits Skin Exam: Present: normal color, warm/dry Maggie Coma Scale - Assess Eye Opening: To Voice Motor: Obeys Commands Verbal: Oriented - Total Coma Scale Total: 14 Initial Stroke Assessment - NIH Stroke Scale Level of Consciousness: Drowsy LOC Questions (Year and Age): Answers both correctly LOC Commands (open/close eyes/fist): Performs both correctly Lateral Gaze Paresis: None Visual Field Loss: No visual loss Facial Palsy: Normal movement Right Arm Motor (10 sec hold): No drift Left Arm Motor (10 sec hold): No drift Sensory Loss (pinprick arms/legs/face): No sensory loss Language Aphasia (description/naming/reading): No aphasia; normal Dysarthria (speech clarity): Slurring, intelligeble Neglect Inattention (visual/tactile/auditory/spatial/person): No neglect ED Progress - Results and Orders Patient's Lab Results:: I have reviewed the patient's lab results. - Vital Signs Patient's Vital Signs:: I have reviewed the patient's vital signs. Vital Signs: Vital Signs 08/20/16 09:59 Temperature 36.4 C L Pulse Rate 90 Respiratory 18 Rate Blood Pressure 124/78 O2 Sat by Pulse 98 Oximetry - EKG EKG: NSR, unchanged from - 08/08/16, other - 1st degree AV block, intraventricular conduction delay, poor R progression anterior leads, EKG read: Interp. by me - CT/Ultrasound CT/Ultrasound Narrative: CT head: no acute changes - Progress/Reassessment Chief Complaint: General Assessment Progress Note-Subjective: 08/20/16 10:55 O2 sat 97-98% on RA when awake, when falling asleep 92-94% patient still easily arousable 08/20/16 11:50 discussed results with step daughter and family, consider admission for observation, possible adjustment of CPAP machine (they will get the machine from home), consider home health 08/20/16 11:52 discussed with Doreen (case manger)coty to admit for observation 08/20/16 11:58 discussed with coty Willis to admit Departure Clinical Impression: Lethargy, Encephalopathy acute, Chronic respiratory failure with hypercapnia - Departure Disposition: [facility] Condition: Good
[2016-08-20 10:46] LABS: Urine Bilirubin Negative (NEGATIVE); Urine Blood Negative /ul (NEGATIVE); Urine Ketone Negative (NEGATIVE); Urine Nitrite Negative (NEGATIVE); Urine Protein Negative (NEGATIVE); Urine Urobilinogen Normal (NORMAL)
[2016-08-20 10:55] LABS: Urine Appearance Clear; Urine Bacteria None Seen; Urine Color Yellow; Urine RBC None Seen /hpf (0-5); Urine WBC None Seen /hpf (0-5)
[2016-08-20 10:56] LABS: ALT 29 U/L (19-67); AST 18 U/L (0-48); Albumin * 3.6 gm/dl (3.4-5.0); Alkaline Phosphatase * 106 U/L (50-170); Anion Gap 7.7 mmol/L (6.8-13.8); BUN/Creatinine Ratio 14.4 (9.0-21.6); Bilirubin, Total 0.7 mg/dL (0.0-1.1); Blood Urea Nitrogen 22 mg/dL (6-23); Ca. Corrected For Albumin 8.3 mg/dL (8.4-10.2); Calcium * 8.3 mg/dL (7.9-10.9); Carbon Dioxide 32.4 mmol/L (24-32.6); Chloride 102 mmol/L (97-106); Glucose * 126 mg/dL (70-110); Potassium 3.1 mmol/L (3.4-4.6); Sodium 139 mmol/L (132-142); Total Protein 7.7 gm/dL (6.2-8.2)
[2016-08-20 10:57] LABS: Troponin I Less than 0.017 ng/ml (0.00-0.10)
[2016-08-20 11:02] LABS: Cocaine Ur Negative (NEGATIVE); Urine Barbiturate Negative (NEGATIVE); Urine Benzodiazepines Negative (NEGATIVE); Urine Opiates Negative (NEGATIVE); Urine PCP Negative (NEGATIVE); Urine THC Negative (NEGATIVE)
--- OUTSIDE RECORDS SUMMARY | 2016-08-20 12:13 | XMS REPORT | Continuity of Care Document ---
:1945 Author Organization [facility] ([facility]) Address [address] [place] [address] Phone [phone] Care Team Providers Name Role Phone Jonathan Vásquez Primary Care Provider [phone] Source Comments This disclosure is being made pursuant to the Care Everywhere program, applicable federal and state laws, and may not contain all informaitonavailable regarding this patient.[facility] ([facility]) Active Allergies and Adverse Reactions Allergen [...]
[2016-08-20] MEDS ORDERED: FLUTICASONE PROPIONATE 120 SPRAY INHALER NS PRN (13:43)
[2016-08-20] MEDS ORDERED: ALBUTEROL SULFATE/IPRATROPIUM 3 ML NEBU IH PRN (13:43)
[2016-08-20] MEDS ORDERED: oxyCODONE HCL 5 MG TABLET PO PRN (13:43)
[2016-08-20] MEDS: BUMETANIDE 1 MG TABLET PO SCH ×2 (14:25→20:40)
[2016-08-20] MEDS ORDERED: POTASSIUM CHLORIDE 20 MEQ TABLET.SA PO ONE ×2 (15:00→23:30)
[2016-08-20] MEDS: PREGABALIN 75 MG CAPSULE PO SCH (20:46)
[2016-08-20] MEDS ORDERED: PRAMIPEXOLE DI-HCL 0.5 MG TABLET PO SCH (21:00)
[2016-08-20] MEDS ORDERED: SIMVASTATIN 20 MG TABLET PO SCH (21:00)
[2016-08-20 22:21] LABS: Hematocrit 42.4 % (42.0-52.0); Hemoglobin 13.4 gm/dL (13.5-18.0); Mean Corpuscular Hemoglobin 26.9 pg (27-31); Mean Corpuscular Hgb Conc 31.6 g/dl (32-36); Mean Platelet Volume 9.4 fl (6.0-9.5); Neutrophil # 6.7 K/mm3 (1.3-6.0); Neutrophil % 75.6 % (42-75.0); Platelet Count 194 K/mm3 (150-450); Red Blood Count 4.99 M/mm3 (4.7-6.0); Red Cell Distribution Width 16.2 % (11.5-14.0); White Blood Count 8.8 K/mm3 (4.0-10.5)
[2016-08-20 22:51] LABS: Anion Gap 9.6 mmol/L (6.8-13.8); BUN/Creatinine Ratio 15.3 (9.0-21.6); Blood Urea Nitrogen 23 mg/dL (6-23); CK Total * 61 U/L (0-259); CKMB 1.8 ng/mL (0.0-9.0); Calcium * 8.4 mg/dL (7.9-10.9); Carbon Dioxide 32.6 mmol/L (24-32.6); Chloride 102 mmol/L (97-106); Estimated Creat Clear 49.6; Glucose * 94 mg/dL (70-110); Magnesium 2.1 mg/dL (1.2-2.8); Potassium 3.2 mmol/L (3.4-4.6); Sodium 141 mmol/L (132-142)
[2016-08-20 22:53] LABS: Troponin I Less than 0.017 ng/ml (0.00-0.10)
--- NOTE | 2016-08-20 23:33 | PN ---
Progess Note - Interim Narrative: 08/20/16 23:01 pt had 7 beats on VT at approx 2200. labs drawn. ekg showed no acute change. labs ordered, reviewed and significant for low K+. creatinine 1.54 - creatinine drawn 08/09/16 was wnl. NS with KCL ordered at 125 ml/hr. Oral K+ also ordered. recheck bmp in am. pt on tele. sg.
[2016-08-20] MEDS: POTASSIUM CHLORIDE 40 MEQ in NORMAL SALINE 1,000 ML IV SCH (23:45)
--- NOTE | 2016-08-20 23:45 | HP ---
Chief Complaint - Chief Complaint Date of Service: 08/20/16 Time of Service: 14:00 Chief Complaint: Somnolence, fatigue, falls History of Present Illness: Elliott is a 70 yo male that presents to the [facility] ER today due to somnolence and falls at home. He has been doing this frequently over the past month. He reports he thinks one of his medications is doing this. He also reports he is not using his CPAP machine. He was recently changed from lasix to bumex, but reports he was having these episodes prior to this change. He likes bumex better than lasix and feels that he gets more urine out over a shorter period of time. He reports his weight, edema, and shortness of breath have been doing well since the change to bumex. He was also started on topamax in the past month for weight loss and he believes this is when he started to get these episodes of spacing out. - Patient's Past Medical History Patient History - Medical: Diabetes Type 2, Obesity Patient History - Cardiac/Respiratory: CHF, COPD, Hypertension, Hyperlipidemia, CPAP/BiPAP Home Use, Sleep Apnea Patient History - Cancer: Prostate Patient History - Surgical Procedures: Cancer Surgery, Colonoscopy, T & A, Other , Orthopedic, Urology Patient History - Other: None - Family History Father Family History - Medical: , History Unknown Family History - Cardiac/Respiratory: History Unknown Family History - Cancer: History Unknown Mother Family History - Medical: , History Unknown Family History - Cardiac/Respiratory: History Unknown Family History - Cancer: History Unknown - Social History Living Situations: home Abuse History: No History of abuse Psych History: No pertinent hx Does anyone smoke in the home?: Yes Smoking Status: Former smoker Have you smoked in the past 12 months: No Alcohol Use: occasionally Drug Use: none - Immunizations Immunizations Up to Date: Yes Hx Pneumococcal Vaccination: No History of Influenza Vaccine: No Review Of Systems (GEN) - Review of Systems Generalized/Overall Review: Present: Weakness, Fatigue. Absent: Chills, Fever EENTM: Present: No Symptoms Reported Respiratory: Present: No Symptoms Reported Cardiac: Present: No Symptoms Reported, Edema Abdominal: Present: No Symptoms Reported Genitourinary: Present: No Symptoms Reported Musculoskeletal: Present: Joint Pain, Back Pain, Muscle Pain Neurological: Present: No Symptoms Reported Skin: Present: No Symptoms Reported Endocrine: Present: No Symptoms Reported Immunizations: IMMUNIZATION HX Immunizations Up to Date Yes History of Influenza Vaccine No Hx Pneumococcal Vaccination No Allergies/Adverse Reactions: Allergies Allergy/AdvReac Type Severity Reaction Status Date / Time No Known Allergies Allergy Verified 08/20/16 10:03 Home Medications: HOME MEDICATIONS ALPRAZolam [Xanax] 1 mg PO TID PRN 07/10/14 [Last Taken Unknown] Aspirin 325 mg PO DAILY 07/10/14 [Last Taken Unknown] Glimepiride [Amaryl] 8 mg PO DAILY 07/10/14 [Last Taken Unknown] Loratadine [Claritin] 10 mg PO DAILY 07/10/14 [Last Taken Unknown] Simvastatin [Zocor] 20 mg PO HS 07/10/14 [Last Taken Unknown] metFORMIN HCL [Glucophage] 1,000 mg PO BID 07/10/14 [Last Taken Unknown] Amitriptyline HCl [Elavil] 50 mg PO HS 05/24/15 [Last Taken Unknown] Fluticasone Furoate [Veramyst] 2 sprays NS DAILY 05/24/15 [Last Taken Unknown] Potassium Chloride [K-Dur] 20 meq PO DAILY 05/24/15 [Last Taken Unknown] Topiramate [Topamax] 100 mg PO DAILY 05/24/15 [Last Taken Unknown] buPROPion HCL [Wellbutrin Xl] 150 mg PO DAILY 05/24/15 [Last Taken Unknown] oxyCODONE HCL [Oxycodone] 20 mg PO Q6H PRN 05/24/15 [Last Taken Unknown] Clotrimazole/Betamet Diprop [Lotrisone Cream] 1 appl TP BID 08/08/16 [Last Taken Unknown] Hydrocortisone Acetate 30 mg RC BID PRN 08/08/16 [Last Taken Unknown] Ipratropium/Albuterol Sulfate [Iprat-Albut 0.5-3(2.5) mg/3 ml] 3 ml IH QID PRN 08/08/16 [Last Taken Unknown] Omeprazole [Prilosec] 20 mg PO DAILY 08/08/16 [Last Taken Unknown] Pregabalin [Lyrica] 75 mg PO BID 08/08/16 [Last Taken Unknown] sitaGLIPtin PHOSPHATE [Januvia] 100 mg PO DAILY 08/08/16 [Last Taken Unknown] Azithromycin 250 mg PO DAILY #3 tablet 08/10/16 [Last Taken Unknown] Bumetanide 2 mg PO BID PRN #60 tablet 08/10/16 [Last Taken Unknown] Calcium Carbonate [Calcium] 500 mg PO DAILY 08/20/16 [Last Taken Unknown] Furosemide [Lasix] 240 mg PO DAILY 08/20/16 [Last Taken Unknown] Pramipexole Di-HCl [Mirapex] 4.5 mg PO HS 08/20/16 [Last Taken Unknown] Zolpidem Tartrate [Ambien] 5 mg PO HS 08/20/16 [Last Taken Unknown] predniSONE [Prednisone] 20 mg PO DAILY 08/20/16 [Last Taken Unknown] Exam - Exam Vital Signs: Vital Signs - Last Taken Temp 36.0 C L 08/20/16 21:00 Pulse 93 08/20/16 23:21 Resp 20 08/20/16 23:21 BP 122/68 08/20/16 21:00 Pulse Ox 90 08/20/16 23:21 Constitutional: Present: Alert, Oriented x3, Cooperative ENT Exam: Present: hearing grossly normal Eye Exam: bilateral eye: normal inspection Respiratory: Present: lungs clear, normal breath sounds Cardiovascular/Chest: Present: regular rate, rhythm, no murmur Abdomen: Present: Normal bowel sounds, soft, nontender, nondistended Extremity: Present: non-tender, lower extremity edema - brawny - chronic, no open wounds Skin Exam: Present: normal color, warm/dry, no cyanosis Appearance: Present: appropriate appearance, appropriate insight Eye contact: Present: cooperative, good eye contact, normal speech Thoughts: Present: normal thought pattern, no apparent hallucination Diagnostic Studies: Abnormal Lab Results 08/20/16 08/20/16 Range/Units 22:19 22:19 Hgb 13.4 L (13.5-18.0) gm/dL MCH 26.9 L (27-31) pg MCHC 31.6 L (32-36) g/dl RDW 16.2 H (11.5-14.0) % Neutrophils % 75.6 H (42-75.0) % Lymphocytes % 16.1 L (20-51) % Neutrophils # 6.7 H (1.3-6.0) K/mm3 Lymphocytes # 1.4 L (1.5-3.5) k/mm3 Potassium 3.2 L (3.4-4.6) mmol/L Creatinine 1.50 H (0.4-1.4) mg/dL Est GFR (Non-Af Amer) 49 L (60-130) mL/min Laboratory Results WBC 8.8 K/mm3 (4.0-10.5) 08/20/16 22:19 RBC 4.99 M/mm3 (4.7-6.0) 08/20/16 22:19 Hgb 13.4 gm/dL (13.5-18.0) L 08/20/16 22:19 Hct 42.4 % (42.0-52.0) 08/20/16 22:19 MCV 85.0 fl (78-100) 08/20/16 22:19 MCH 26.9 pg (27-31) L 08/20/16 22:19 MCHC 31.6 g/dl (32-36) L 08/20/16 22:19 RDW 16.2 % (11.5-14.0) H 08/20/16 22:19 Plt Count 194 K/mm3 (150-450) 08/20/16 22:19 MPV 9.4 fl (6.0-9.5) 08/20/16 22:19 Immature Gran % (Auto) 0.30 % (0.001-0.429) 08/20/16 22:19 Immature Gran # (Auto) 0.03 K/mm3 (0.000-0.0310) 08/20/16 22:19 Neutrophils % 75.6 % (42-75.0) H 08/20/16 22:19 Lymphocytes % 16.1 % (20-51) L 08/20/16 22:19 Monocytes % 5.9 % (0.0-9) 08/20/16 22:19 Eosinophils % 1.9 % (0.0-3.0) 08/20/16 22:19 Basophils % 0.2 % (0.0-1.0) 08/20/16 22:19 Nucleated RBC % 0.0 k/mm3 (0-1) 08/20/16 22:19 Neutrophils # 6.7 K/mm3 (1.3-6.0) H 08/20/16 22:19 Lymphocytes # 1.4 k/mm3 (1.5-3.5) L 08/20/16 22:19 Monocytes # 0.5 k/mm3 (0.0-1.0) 08/20/16 22:19 Eosinophils # 0.2 k/mm3 (0.0-0.7) 08/20/16 22:19 Absolute Basophils 0.0 k/mm3 (0.0-0.1) 08/20/16 22:19 pCO2 50.3 mmHg (35.0-48.0) H 08/20/16 11:05 pO2 75.8 mmHg (83.0-108.0) L 08/20/16 11:05 HCO3 28.7 mmol/L (21.0-28.0) H 08/20/16 11:05 Total CO2 30.2 mmol/L (19.0-24.0) H 08/20/16 11:05 Base Excess 2.6 mmol/L (-2.0-3.0) 08/20/16 11:05 ABG pH 7.37 (7.35-7.45) 08/20/16 11:05 ABG O2 Sat (Measured) 94.7 % (94.0-98.0) 08/20/16 11:05 Sodium 141 mmol/L (132-142) 08/20/16 22:19 Plasma Sodium 141 mmol/L (130-142) 08/20/16 22:19 Potassium 3.2 mmol/L (3.4-4.6) L 08/20/16 22:19 Chloride 102 mmol/L (97-106) 08/20/16 22:19 Carbon Dioxide 32.6 mmol/L (24-32.6) 08/20/16 22:19 Anion Gap 9.6 mmol/L (6.8-13.8) 08/20/16 22:19 BUN 23 mg/dL (6-23) 08/20/16 22:19 Creatinine 1.50 mg/dL (0.4-1.4) H 08/20/16 22:19 Est GFR (Non-Af Amer) 49 mL/min (60-130) L 08/20/16 22:19 BUN/Creatinine Ratio 15.3 (9.0-21.6) 08/20/16 22:19 Random Glucose 94 mg/dL (70-110) 08/20/16 22:19 Calcium 8.4 mg/dL (7.9-10.9) 08/20/16 22:19 Calcium Adj for Albumin 8.3 mg/dL (8.4-10.2) L 08/20/16 10:30 Magnesium 2.1 mg/dL (1.2-2.8) 08/20/16 22:19 Total Bilirubin 0.7 mg/dL (0.0-1.1) 08/20/16 10:30 AST 18 U/L (0-48) 08/20/16 10:30 ALT 29 U/L (19-67) 08/20/16 10:30 Alkaline Phosphatase 106 U/L (50-170) 08/20/16 10:30 Creatine Kinase 61 U/L (0-259) 08/20/16 22:19 CK-MB (CK-2) 1.8 ng/mL (0.0-9.0) 08/20/16 22:19 Troponin I Less than 0.017 ng/ml (0.00-0.10) 08/20/16 22:19 Total Protein 7.7 gm/dL (6.2-8.2) 08/20/16 10:30 Albumin 3.6 gm/dl (3.4-5.0) 08/20/16 10:30 Urine Color Yellow 08/20/16 10:40 Urine Appearance Clear 08/20/16 10:40 Urine pH 7.0 pH (5.0-7.0) 08/20/16 10:40 Ur Specific [place] 1.010 SP.GR. (1.005-1.030) 08/20/16 10:40 Urine Protein Negative mg/dL (NEGATIVE) 08/20/16 10:40 Urine Glucose (UA) Negative mg/dL (NEGATIVE) 08/20/16 10:40 Urine Ketones Negative mg/dL (NEGATIVE) 08/20/16 10:40 Urine Blood Negative /ul (NEGATIVE) 08/20/16 10:40 Urine Nitrate Negative (NEGATIVE) 08/20/16 10:40 Urine Bilirubin Negative mg/dl (NEGATIVE) 08/20/16 10:40 Urine Urobilinogen Normal EU/dl (NORMAL) 08/20/16 10:40 Ur Leukocyte Esterase Negative /ul (NEGATIVE) 08/20/16 10:40 Urine RBC None seen /hpf (0-5) 08/20/16 10:40 Urine WBC None seen /hpf (0-5) 08/20/16 10:40 Ur Epithelial Cells 5-10 /hpf (0-5) H 08/20/16 10:40 Urine Bacteria None seen (NONE) 08/20/16 10:40 Urine Culture Comments No culture indicated 08/20/16 10:40 Urine Opiates Screen Negative (NEGATIVE) 08/20/16 10:40 Barbiturate Screen Negative (NEGATIVE) 08/20/16 10:40 Ur Phencyclidine Scrn Negative (NEGATIVE) 08/20/16 10:40 Urine Amphetamine Negative (NEGATIVE) 08/20/16 10:40 U Benzodiazepines Scrn Negative (NEGATIVE) 08/20/16 10:40 Urine Cocaine Screen Negative (NEGATIVE) 08/20/16 10:40 Urine Marijuana (THC) Negative (NEGATIVE) 08/20/16 10:40 Assessment/Plan - Narrative Narrative: Elliott is a 70 yo male with acute encephalopathy with lethargy. At this time he appears to be improved. However, reports from the ER were that he was very lethargic and confused. He had episodes of falling at home and could not stay awake. This may be multifactorial. Symptoms are reported by the patient to have started have Topamax was started for weight loss. This medication can cause a side effect of altered mentation. He also has Obstructive sleep apnea and has not been using his CPAP. His CO2 is 50, but ph is normal indicating this is chronic and he is well compensated, and not likely a cause to his somnolence. Will admit to observation, expecting 1 midnight stay. Will discontinue Topamax. Will place on CPAP and monitor for correct settings. Will have respiratory/sleep lab adjust his CPAP machine to make it more useful. As he is already improved back to his baseline at this time will plan to discharge in the morning after we continue to observe him overnight. - Assessment/Plan (1) Encephalopathy acute Problem: Acute (2) Obstructive sleep apnea Problem: Acute (3) Lethargy Problem: Acute
--- NOTE | 2016-08-21 01:46 | PN ---
<Elise Terrazas - Last Filed: 08/21/16 01:48> Subjective - Date and Time Seen Date: 08/21/16 Time: 01:40 Subjective Narrative: feels better. less sleepy. 7 beats VT last night - asymptomatic. topamax dc' d yesterday. Objective - Review of Systems Generalized/Overall Review: Reports: No Symptoms Reported EENTM: Reports: No Symptoms Reported Respiratory: Reports: No Symptoms Reported Cardiac: Reports: No Symptoms Reported Abdominal: Reports: No Symptoms Reported Genitourinary Symptoms: Reports: No Symptoms Reported Musculoskeletal Complaints: Reports: No Symptoms Reported Neurological: Reports: No Symptoms Reported Skin: Reports: No Symptoms Reported Endocrine: Reports: No Symptoms Reported Misc: All systems neg except as marked - Vitals Vitals: Last Vital Signs Temp 36.8 C 08/21/16 00:00 Pulse 90 08/21/16 00:00 Resp 18 08/21/16 00:00 BP 122/64 08/21/16 00:00 Pulse Ox 96 08/21/16 00:00 - Abnormal Lab Findings Abnormal Lab Findings: Abnormal Lab Results 08/20/16 08/20/16 Range/Units 22:19 22:19 Hgb 13.4 L (13.5-18.0) gm/dL MCH 26.9 L (27-31) pg MCHC 31.6 L (32-36) g/dl RDW 16.2 H (11.5-14.0) % Neutrophils % 75.6 H (42-75.0) % Lymphocytes % 16.1 L (20-51) % Neutrophils # 6.7 H (1.3-6.0) K/mm3 Lymphocytes # 1.4 L (1.5-3.5) k/mm3 Potassium 3.2 L (3.4-4.6) mmol/L Creatinine 1.50 H (0.4-1.4) mg/dL Est GFR (Non-Af Amer) 49 L (60-130) mL/min - Exam Constitutional: Present: Alert, Cooperative, No distress ENT Exam: Present: hearing grossly normal Neck: Present: full range of motion, supple Breasts: Present: Exam deferred Respiratory: Present: lungs clear, normal breath sounds Cardiovascular/Chest: Present: normal peripheral pulses, regular rate, rhythm Abdomen: Present: soft, nontender, nondistended /Rectal: Present: Exam deferred Extremity: Present: non-tender, normal inspection Skin Exam: Present: normal color, warm/dry, no cyanosis Assessment/Plan Plan Narrative: encephalopathy / lethargy - improved with cpap use today and topamax d/c - encourage cpap use at home. VT - 7 beats overnight - asymptomatic - ekg shows no acute changes - K+ low - IV and oral K+ ordered overnight - ? holter monitor at discharge. hypokalemia - replaced with iv and po K+ overnight. - monitor labs EMELYN - encourage cpap use at home hypercapnia - blood gas shows that this is compensated - likely from not wearing cpap at home Code status: full code vte: early ambulation gi proph: protonix po - Problems/Diagnosis (1) Hypokalemia Problem: Acute (2) Encephalopathy acute Problem: Acute (3) Lethargy Problem: Acute (4) Obstructive sleep apnea Problem: Acute (5) Ventricular tachycardia Problem: Acute <Steve Daniels - Last Filed: 08/22/16 18:08> Subjective Subjective Narrative: His thought it was probably the topamax. He is almost back to normal. I directed all of our nurse practitioner hospitalist care for this patient. Objective - Vitals Vitals: Last Vital Signs Temp 36.8 C 08/21/16 10:55 Pulse 94 08/21/16 10:55 Resp 18 08/21/16 10:55 BP 113/70 08/21/16 10:55 Pulse Ox 100 08/21/16 10:55 Assessment/Plan - Problems/Diagnosis (1) Chronic respiratory failure with hypercapnia Problem: Chronic (2) Encephalopathy acute Problem: Resolved (3) Obstructive sleep apnea Problem: Chronic
[2016-08-21] MEDS ORDERED: PANTOPRAZOLE SODIUM 20 MG TABLET.DR PO SCH (07:00)
[2016-08-21 07:20] LABS: Anion Gap 8.4 mmol/L (6.8-13.8); BUN/Creatinine Ratio 16.1 (9.0-21.6); Calcium * 8.3 mg/dL (7.9-10.9); Carbon Dioxide 31.4 mmol/L (24-32.6); Estimated Creat Clear 54.3; Potassium 3.8 mmol/L (3.4-4.6)
[2016-08-21] MEDS: POTASSIUM CHLORIDE 40 MEQ in NORMAL SALINE 1,000 ML IV SCH (07:57)
[2016-08-21] MEDS ORDERED: GLIMEPIRIDE 4 MG TABLET PO SCH (08:00)
[2016-08-21] MEDS ORDERED: POTASSIUM CHLORIDE 20 MEQ TABLET.SA PO SCH (09:00)
[2016-08-21] MEDS ORDERED: ASPIRIN 325 MG TABLET.DR PO SCH (09:00)
[2016-08-21] MEDS ORDERED: buPROPion HCL 150 MG TAB.SR.24H PO SCH (09:00)
[2016-08-21] MEDS ORDERED: LORATADINE 10 MG TABLET PO SCH (09:00)
[2016-08-21] MEDS ORDERED: sitaGLIPtin PHOSPHATE 50 MG TABLET PO SCH (09:00)
[2016-08-21] MEDS: BUMETANIDE 1 MG TABLET PO SCH (09:05)
[2016-08-21] MEDS: PREGABALIN 75 MG CAPSULE PO SCH (09:08)
--- NOTE | 2016-08-21 10:53 | DS ---
(1) Chronic respiratory failure with hypercapnia Problem: Chronic (2) Encephalopathy acute Diagnosis(s): Due to topamax Problem: Resolved (3) Obstructive sleep apnea Problem: Chronic Description of Stay: Lethargy was not noted at first when topamax was begun, but subsequently, then worsened. He was admitted to an observation bed, becauset the cause was not immediately apparent. He was also hypercarbic. The topamax was stopped. He is now back to his normal self, and breathing is no longer a worrisome issue. He will be discharged with plan for outpatient followup. Procedures Performed: none Discharge Disposition: Home self care Disposition: Home self-care Condition: Good Discharge Activity: Activity as tolerated Discharge Diet: Low salt Problem Oriented Discharge Instructions to Patient/Family: Drug Toxicity Additional Patient Instructions (free text): [facility]. Please fax orders, H&P, face to face upon discharge. Avoid topamax in the future Follow up with Dr. Vásquez in 2-3 weeks. Complete Home Medications List: Complete Home Medication List: ALPRAZolam [Xanax] 1 mg PO TID PRN 07/10/14 Aspirin 325 mg PO DAILY 07/10/14 Glimepiride [Amaryl] 8 mg PO DAILY 07/10/14 Loratadine [Claritin] 10 mg PO DAILY 07/10/14 Simvastatin [Zocor] 20 mg PO HS 07/10/14 metFORMIN HCL [Glucophage] 1,000 mg PO BID 07/10/14 Amitriptyline HCl [Elavil] 50 mg PO HS 05/24/15 Fluticasone Furoate [Veramyst] 2 sprays NS DAILY 05/24/15 Potassium Chloride [K-Dur] 20 meq PO DAILY 05/24/15 buPROPion HCL [Wellbutrin Xl] 150 mg PO DAILY 05/24/15 oxyCODONE HCL [Oxycodone] 20 mg PO Q6H PRN 05/24/15 Clotrimazole/Betamet Diprop [Lotrisone Cream] 1 appl TP BID 08/08/16 Hydrocortisone Acetate 30 mg RC BID PRN 08/08/16 Ipratropium/Albuterol Sulfate [Iprat-Albut 0.5-3(2.5) mg/3 ml] 3 ml IH QID PRN 08/08/16 Omeprazole [Prilosec] 20 mg PO DAILY 08/08/16 Pregabalin [Lyrica] 75 mg PO BID 08/08/16 sitaGLIPtin PHOSPHATE [Januvia] 100 mg PO DAILY 08/08/16 Bumetanide 2 mg PO BID PRN #60 tablet 08/10/16 Calcium Carbonate [Calcium] 500 mg PO DAILY 08/20/16 Furosemide [Lasix] 240 mg PO DAILY 08/20/16 Pramipexole Di-HCl [Mirapex] 4.5 mg PO HS 08/20/16 Zolpidem Tartrate [Ambien] 5 mg PO HS 08/20/16 predniSONE [Prednisone] 20 mg PO DAILY 08/20/16 sitaGLIPtin PHOSPHATE [Januvia] 100 mg PO DAILY tablet 08/21/16
[2016-08-21 10:56] VITALS: BP 113/70
== END 2016-08-21 13:10 | disposition home health service (06) ==
LOC: ER 09:58 → MS 12:08
PROVIDERS: ADMIT Family Medicine; ATTEND Family Medicine
DX: G92 Toxic encephalopathy (principal); T42.6X5A Adverse effect of other antiepileptic and sedative-hypnotic drugs, initial encounter; J96.12 Chronic respiratory failure with hypercapnia; G47.33 Obstructive sleep apnea (adult) (pediatric); E11.9 Type 2 diabetes mellitus without complications; E66.9 Obesity, unspecified; J44.9 Chronic obstructive pulmonary disease, unspecified; I10 Essential (primary) hypertension; E78.5 Hyperlipidemia, unspecified
CPT/HCPCS: 36415; 36600; 70450; 80048; 80053; 80307; 81001; 82550; 82553; 82803; 83735; 84484; 85025; 93005; 94660; 97116; 97161; 99284; G0378; G8978; G8979; G8980

== ENCOUNTER 2016-10-16 10:56 | Observation (INO) | payer MEDICARE, OTHER ==
[2016-10-16] MEDS ORDERED: POTASSIUM CHLORIDE 20 MEQ TABLET.SA PO ONE ×2 (13:18→21:00)
[2016-10-16] MEDS: POTASSIUM CHLORIDE 100 ML IV SCH ×6 (15:28→23:39)
--- NOTE | 2016-10-16 15:34 | OR ---
Anesthesia Procedure Note - Anesthesia Procedure Note Narrative: Vital Signs - Last Taken Temp 35.7 C L 10/16/16 13:12 Pulse 89 10/16/16 13:12 Resp 16 10/16/16 13:12 BP 139/73 10/16/16 13:12 Pulse Ox 100 10/16/16 13:12 O2 Oxygen Delivery Method Room Air 10/16/16 15:33 ANESTHESIA PROCEDURE NOTE Date of procedure: 10/16/2016. Time of procedure: 1525. Performed by: Bhavin Ritter CRNA Welder Tack: None . Preprocedure diagnosis: Hypokalemia. Difficult IV access.. Post procedure diagnosis: Same. Procedure: IV start Indications: Hypokalemia. Findings: 22-gauge Angiocath IV needle started in left upper chest. EBL: Minimal. Fluids: N/A. Specimen: N/A. Post procedure condition: The patient tolerated the procedure well. No complications were noted. Thank you for this consultation Bhavin Ritter CRNA
[2016-10-16 18:40] LABS: BUN/Creatinine Ratio 27.6 (9.0-21.6); Calcium * 8.4 mg/dL (7.9-10.9); Estimated Creat Clear 39.6; Magnesium 1.7 mg/dL (1.2-2.8); Potassium 2.6 mmol/L (3.4-4.6)
[2016-10-16 18:44] LABS: Anion Gap 13.7 mmol/L (6.8-13.8); Carbon Dioxide 33.9 mmol/L (24-32.6)
[2016-10-16] MEDS ORDERED: ALPRAZolam 1 MG TABLET PO PRN (20:53)
[2016-10-16] MEDS ORDERED: oxyCODONE HCL 5 MG TABLET PO PRN (20:53)
[2016-10-16] MEDS ORDERED: ALBUTEROL SULFATE/IPRATROPIUM 3 ML NEBU IH PRN (20:53)
[2016-10-16] MEDS ORDERED: ZOLPIDEM TARTRATE 5 MG TABLET PO SCH (21:00)
[2016-10-16] MEDS ORDERED: AMITRIPTYLINE HCL 50 MG TABLET PO SCH (21:00)
[2016-10-16] MEDS ORDERED: SIMVASTATIN 20 MG TABLET PO SCH (21:00)
[2016-10-16] MEDS ORDERED: metFORMIN HCL 500 MG TABLET ONE (22:10)
[2016-10-16] MEDS ORDERED: AMITRIPTYLINE HCL 25 MG TABLET ONE ×2 (22:10→22:15)
[2016-10-16] MEDS ORDERED: HYDROCORTISONE ACETATE 25 MG SUPP.RECT RC PRN (22:11)
[2016-10-16] MEDS: POTASSIUM CHLORIDE 20 MEQ TABLET.SA PO SCH (22:19)
[2016-10-16] MEDS: CLOTRIMAZOLE/BETAMET DIPROP 15 APPL TUBE TP SCH (22:20)
[2016-10-16] MEDS: PREGABALIN 75 MG CAPSULE PO SCH (22:20)
[2016-10-16] MEDS ORDERED: PRAMIPEXOLE DI-HCL 0.5 MG TABLET PO SCH (22:30)
--- NOTE | 2016-10-16 23:43 | HP ---
Chief Complaint - Chief Complaint Date of Service: 10/16/16 Time of Service: 14:00 Chief Complaint: Weakness, shakiness History of Present Illness: Elliott is a 71 yo male that was seen in the wound clinic today for lower extremity wounds secondary to lower extremity edema. He was noted in wound clinic to be somnolent, have unsteady gait, and a potassium of 2.3. He reports he has been weak and shaky. He reports he has been trying to lose more weight and has been using his diuretics frequently. Discussed admission to replace potassium. He was initially resistant, but finally agreed. - Patient's Past Medical History Patient History - Medical: Diabetes Type 2, Obesity Patient History - Cardiac/Respiratory: CHF, COPD, Hypertension, Hyperlipidemia, Peripheral Vascular Disease, CPAP/BiPAP Home Use, Sleep Apnea Patient History - Cancer: Prostate Patient History - Surgical Procedures: Cancer Surgery, Colonoscopy, T & A, Other , Orthopedic, Urology Patient History - Other: None - Family History Father Family History - Medical: , History Unknown Family History - Cardiac/Respiratory: History Unknown Family History - Cancer: History Unknown Mother Family History - Medical: , History Unknown Family History - Cardiac/Respiratory: History Unknown Family History - Cancer: History Unknown - Social History Living Situations: spouse Abuse History: No History of abuse Psych History: No pertinent hx Does anyone smoke in the home?: Yes Smoking Status: Current some day smoker Have you smoked in the past 12 months: Yes Alcohol Use: occasionally Drug Use: none - Immunizations Immunizations Up to Date: Yes Hx Pneumococcal Vaccination: No History of Influenza Vaccine: No Review Of Systems (GEN) - Review of Systems Generalized/Overall Review: Present: Weakness, Fatigue, Weight loss. Absent: Chills, Fever EENTM: Present: No Symptoms Reported Respiratory: Present: No Symptoms Reported Cardiac: Present: Edema Abdominal: Present: No Symptoms Reported Genitourinary: Present: No Symptoms Reported Musculoskeletal: Present: No Symptoms Reported Neurological: Present: No Symptoms Reported Skin: Present: No Symptoms Reported Immunizations: IMMUNIZATION HX Immunizations Up to Date Yes History of Influenza Vaccine No Hx Pneumococcal Vaccination No Allergies/Adverse Reactions: Allergies Allergy/AdvReac Type Severity Reaction Status Date / Time topiramate [From Topamax] AdvReac Intermediate lethargy Verified 10/16/16 09:34 Home Medications: HOME MEDICATIONS ALPRAZolam [Xanax] 1 mg PO TID PRN 07/10/14 [Last Taken Unknown] Aspirin 325 mg PO DAILY 07/10/14 [Last Taken Unknown] Glimepiride [Amaryl] 8 mg PO DAILY 07/10/14 [Last Taken Unknown] Loratadine [Claritin] 10 mg PO DAILY 07/10/14 [Last Taken Unknown] Simvastatin [Zocor] 20 mg PO HS 07/10/14 [Last Taken Unknown] metFORMIN HCL [Glucophage] 1,000 mg PO BID 07/10/14 [Last Taken Unknown] Amitriptyline HCl [Elavil] 100 mg PO HS 05/24/15 [Last Taken Unknown] Fluticasone Furoate [Veramyst] 2 sprays NS DAILY 05/24/15 [Last Taken Unknown] Potassium Chloride [K-Dur] 20 meq PO DAILY 05/24/15 [Last Taken Unknown] buPROPion HCL [Wellbutrin Xl] 150 mg PO DAILY 05/24/15 [Last Taken Unknown] oxyCODONE HCL [Oxycodone] 20 mg PO Q6H PRN 05/24/15 [Last Taken Unknown] Clotrimazole/Betamet Diprop [Lotrisone Cream] 1 appl TP BID 08/08/16 [Last Taken Unknown] Hydrocortisone Acetate 30 mg RC BID PRN 08/08/16 [Last Taken Unknown] Ipratropium/Albuterol Sulfate [Iprat-Albut 0.5-3(2.5) mg/3 ml] 3 ml IH QID PRN 08/08/16 [Last Taken Unknown] Omeprazole [Prilosec] 20 mg PO DAILY 08/08/16 [Last Taken Unknown] Pregabalin [Lyrica] 75 mg PO BID 08/08/16 [Last Taken Unknown] sitaGLIPtin PHOSPHATE [Januvia] 100 mg PO DAILY 08/08/16 [Last Taken Unknown] Calcium Carbonate [Calcium] 500 mg PO DAILY 08/20/16 [Last Taken Unknown] Pramipexole Di-HCl [Mirapex] 4.5 mg PO HS 08/20/16 [Last Taken Unknown] Zolpidem Tartrate [Ambien] 5 mg PO HS 08/20/16 [Last Taken Unknown] predniSONE [Prednisone] 20 mg PO DAILY 08/20/16 [Last Taken Unknown] Bumetanide 4 mg PO DAILY PRN 10/16/16 [Last Taken Unknown] Metolazone [Zaroxolyn] 5 mg PO DAILY PRN 10/16/16 [Last Taken Unknown] Exam - Exam Vital Signs: Vital Signs - Last Taken Temp 35.7 C L 10/16/16 13:12 Pulse 94 10/16/16 21:30 Resp 20 10/16/16 21:30 BP 139/73 10/16/16 13:12 Pulse Ox 94 10/16/16 21:30 Constitutional: Present: Oriented x3, Cooperative, Somnolent ENT Exam: Present: hearing grossly normal Eye Exam: bilateral eye: normal inspection Respiratory: Present: lungs clear, normal breath sounds Cardiovascular/Chest: Present: regular rate, rhythm, no murmur Abdomen: Present: Normal bowel sounds, soft, nontender, nondistended Extremity: Present: lower extremity edema - legs wrapped from wound clinic Appearance: Present: disheveled Eye contact: Present: cooperative, other - slurring of speech Thoughts: Present: normal thought pattern, no apparent hallucination. Absent: delusions Diagnostic Studies: Abnormal Lab Results 10/16/16 Range/Units 18:26 Potassium 2.6 L (3.4-4.6) mmol/L Chloride 94 L (97-106) mmol/L Carbon Dioxide 33.9 H (24-32.6) mmol/L BUN 51 H (6-23) mg/dL Creatinine 1.85 H (0.4-1.4) mg/dL Est GFR (Non-Af Amer) 38 L (60-130) mL/min BUN/Creatinine Ratio 27.6 H (9.0-21.6) Random Glucose 172 H D (70-110) mg/dL Laboratory Results Sodium 139 mmol/L (132-142) 10/16/16 18:26 Plasma Sodium 140 mmol/L (130-142) 10/16/16 18:26 Potassium 2.6 mmol/L (3.4-4.6) L 10/16/16 18:26 Chloride 94 mmol/L (97-106) L 10/16/16 18:26 Carbon Dioxide 33.9 mmol/L (24-32.6) H 10/16/16 18:26 Anion Gap 13.7 mmol/L (6.8-13.8) 10/16/16 18:26 BUN 51 mg/dL (6-23) H 10/16/16 18:26 Creatinine 1.85 mg/dL (0.4-1.4) H 10/16/16 18:26 Est GFR (Non-Af Amer) 38 mL/min (60-130) L 10/16/16 18:26 BUN/Creatinine Ratio 27.6 (9.0-21.6) H 10/16/16 18:26 Random Glucose 172 mg/dL (70-110) H D 10/16/16 18:26 Calcium 8.4 mg/dL (7.9-10.9) 10/16/16 18:26 Magnesium 1.7 mg/dL (1.2-2.8) 10/16/16 18:26 Assessment/Plan - Assessment/Plan (1) Hypokalemia Assessment: Elliott is a 71 yo male. He has significant potassium of 2.3. His hypokalemia is due to his increased use of loop diuretic. He will be given potassium replacement and monitor potassium. He will be on telemetry. Will plan to replace potassium over one midnight and discharge tomorrow. Will admit to observation. Problem: Acute (2) Somnolence Assessment: Suspect secondary to hypokalemia and obstructive sleep apnea. Will use auto CPAP overnight. Problem: Acute (3) Obstructive sleep apnea Problem: Chronic
[2016-10-17] MEDS: POTASSIUM CHLORIDE 100 ML IV SCH ×5 (01:11→08:55)
[2016-10-17 01:23] LABS: Anion Gap 11.7 mmol/L (6.8-13.8); BUN/Creatinine Ratio 28.9 (9.0-21.6); Calcium * 8.2 mg/dL (7.9-10.9); Carbon Dioxide 33.5 mmol/L (24-32.6); Estimated Creat Clear 42.4; Potassium 3.2 mmol/L (3.4-4.6)
[2016-10-17] MEDS ORDERED: POTASSIUM CHLORIDE 20 MEQ TABLET.SA PO ONE (01:39)
[2016-10-17 06:21] LABS: Anion Gap 12.4 mmol/L (6.8-13.8); Calcium * 8.4 mg/dL (7.9-10.9); Carbon Dioxide 32.1 mmol/L (24-32.6); Estimated Creat Clear 45.8; Potassium 3.5 mmol/L (3.4-4.6)
[2016-10-17 06:50] VITALS: BP 116/68
[2016-10-17] MEDS ORDERED: PANTOPRAZOLE SODIUM 20 MG TABLET.DR PO SCH (07:00)
--- NOTE | 2016-10-17 08:46 | DS ---
(1) Hypokalemia Problem: Acute (2) Somnolence Problem: Acute (3) Obstructive sleep apnea Problem: Chronic Description of Stay: Elliott is a 71 yo male admitted to observation with a potassium of 2.6. He agreed to admission for one night only as he stated he needed to get back home to his . He was treated with potassium, monitored on telemetry, and potassium was rechecked. He was given additional doses of potassium and rechecked and found to be normalized. He was found to have been taking more than his prescibed diuretics. He was educated that every time he takes his diuretics he is supposed to take his potassium. At discharge he was alert, oriented x 3, and walking without ataxia. Procedures Performed: none Discharge Disposition: Home self care Disposition: Home self-care Condition: Fair Discharge Activity: Activity as tolerated Discharge Diet: Low salt Referrals: Jonathan Vásquez DO [Staff Physician] - One Week Problem Oriented Discharge Instructions to Patient/Family: Hypokalemia Additional Patient Instructions (free text): Follow up appointment with Dr. Vásquez on 10/27/16 at 10:00am Complete Home Medications List: Complete Home Medication List: ALPRAZolam [Xanax] 1 mg PO TID PRN 07/10/14 Aspirin 325 mg PO DAILY 07/10/14 Loratadine [Claritin] 10 mg PO DAILY 07/10/14 Simvastatin [Zocor] 20 mg PO HS 07/10/14 metFORMIN HCL [Glucophage] 1,000 mg PO BID 07/10/14 Fluticasone Furoate [Veramyst] 2 sprays NS DAILY 05/24/15 buPROPion HCL [Wellbutrin Xl] 150 mg PO DAILY 05/24/15 oxyCODONE HCL [Oxycodone] 20 mg PO Q6H PRN 05/24/15 Clotrimazole/Betamet Diprop [Lotrisone Cream] 1 appl TP BID 08/08/16 Hydrocortisone Acetate 30 mg RC BID PRN 08/08/16 Ipratropium/Albuterol Sulfate [Iprat-Albut 0.5-3(2.5) mg/3 ml] 3 ml IH QID PRN 08/08/16 sitaGLIPtin PHOSPHATE [Januvia] 100 mg PO DAILY 08/08/16 Calcium Carbonate [Calcium] 500 mg PO DAILY 08/20/16 Pramipexole Di-HCl [Mirapex] 4.5 mg PO HS 08/20/16 Metolazone [Zaroxolyn] 5 mg PO DAILY PRN 10/16/16 Potassium Chloride [K-Dur] 20 meq PO DAILY 10/21/16
[2016-10-17] MEDS: POTASSIUM CHLORIDE 20 MEQ TABLET.SA PO SCH (08:57)
[2016-10-17] MEDS: CLOTRIMAZOLE/BETAMET DIPROP 15 APPL TUBE TP SCH (08:57)
[2016-10-17] MEDS ORDERED: ASPIRIN 325 MG TABLET.DR PO SCH (09:00)
[2016-10-17] MEDS ORDERED: GLIMEPIRIDE 4 MG TABLET PO SCH (09:00)
[2016-10-17] MEDS ORDERED: predniSONE 20 MG TABLET PO SCH (09:00)
[2016-10-17] MEDS ORDERED: buPROPion HCL 150 MG TAB.SR.24H PO SCH (09:00)
[2016-10-17] MEDS ORDERED: FLUTICASONE PROPIONATE 120 SPRAY INHALER NS SCH (09:00)
[2016-10-17] MEDS ORDERED: CALCIUM CARBONATE 500 MG TAB.CHEW PO SCH (09:00)
[2016-10-17] MEDS ORDERED: sitaGLIPtin PHOSPHATE 50 MG TABLET PO SCH (09:00)
[2016-10-17] MEDS ORDERED: BUMETANIDE 1 MG TABLET PO PRN (09:00)
[2016-10-17] MEDS ORDERED: LORATADINE 10 MG TABLET PO SCH (09:00)
[2016-10-17] MEDS: PREGABALIN 75 MG CAPSULE PO SCH (09:03)
== END 2016-10-17 10:10 | disposition home or self-care (01) ==
LOC: RAD 10:56 → MS 13:09
PROVIDERS: ADMIT Family Medicine; ATTEND Family Medicine
DX: E87.6 Hypokalemia (principal); G47.33 Obstructive sleep apnea (adult) (pediatric); E66.9 Obesity, unspecified; E11.51 Type 2 diabetes mellitus with diabetic peripheral angiopathy without gangrene; I50.9 Heart failure, unspecified; J44.9 Chronic obstructive pulmonary disease, unspecified; F17.210 Nicotine dependence, cigarettes, uncomplicated; R60.0 Localized edema
CPT/HCPCS: 36415; 80048; 83735; 93923; 93970; 94660; 96365; 96366; G0378

== ENCOUNTER 2016-10-20 21:23 | Observation (INO) | payer MEDICARE, OTHER ==
--- NOTE | 2016-10-20 21:58 | ERNOTE ---
Neuro HPI ER Record Presenting Symptoms: confusion Time Seen by Provider: 10/20/16 21:35 Source: patient, family Exam Limitations: clinical condition Immunizations: IMMUNIZATION HX Immunizations Up to Date Yes History of Influenza Vaccine Yes Hx Pneumococcal Vaccination No Allergies/Adverse Reactions: Allergies Allergy/AdvReac Type Severity Reaction Status Date / Time topiramate [From Topamax] AdvReac Intermediate lethargy Verified 10/16/16 09:34 Home Medications: HOME MEDICATIONS ALPRAZolam [Xanax] 1 mg PO TID PRN 07/10/14 [Last Taken Unknown] Aspirin 325 mg PO DAILY 07/10/14 [Last Taken Unknown] Glimepiride [Amaryl] 8 mg PO DAILY 07/10/14 [Last Taken Unknown] Loratadine [Claritin] 10 mg PO DAILY 07/10/14 [Last Taken Unknown] Simvastatin [Zocor] 20 mg PO HS 07/10/14 [Last Taken Unknown] metFORMIN HCL [Glucophage] 1,000 mg PO BID 07/10/14 [Last Taken Unknown] Amitriptyline HCl [Elavil] 100 mg PO HS 05/24/15 [Last Taken Unknown] Fluticasone Furoate [Veramyst] 2 sprays NS DAILY 05/24/15 [Last Taken Unknown] buPROPion HCL [Wellbutrin Xl] 150 mg PO DAILY 05/24/15 [Last Taken Unknown] oxyCODONE HCL [Oxycodone] 20 mg PO Q6H PRN 05/24/15 [Last Taken Unknown] Clotrimazole/Betamet Diprop [Lotrisone Cream] 1 appl TP BID 08/08/16 [Last Taken Unknown] Hydrocortisone Acetate 30 mg RC BID PRN 08/08/16 [Last Taken Unknown] Ipratropium/Albuterol Sulfate [Iprat-Albut 0.5-3(2.5) mg/3 ml] 3 ml IH QID PRN 08/08/16 [Last Taken Unknown] Omeprazole [Prilosec] 20 mg PO DAILY 08/08/16 [Last Taken Unknown] Pregabalin [Lyrica] 75 mg PO BID 08/08/16 [Last Taken Unknown] sitaGLIPtin PHOSPHATE [Januvia] 100 mg PO DAILY 08/08/16 [Last Taken Unknown] Calcium Carbonate [Calcium] 500 mg PO DAILY 08/20/16 [Last Taken Unknown] Pramipexole Di-HCl [Mirapex] 4.5 mg PO HS 08/20/16 [Last Taken Unknown] Zolpidem Tartrate [Ambien] 5 mg PO HS 08/20/16 [Last Taken Unknown] predniSONE [Prednisone] 20 mg PO DAILY 08/20/16 [Last Taken Unknown] Metolazone [Zaroxolyn] 5 mg PO DAILY PRN 10/16/16 [Last Taken Unknown] Potassium Chloride [K-Dur] 40 meq PO DAILY #60 tablet.sa 10/17/16 [Last Taken Unknown] - History of Present Illness Narrative: Step daughter states that the patient has been more confused for the past week or so. He has also been falling frequently. Today he was driving down the wrong side of the road and was stopped by police. Onset: cannot confirm onset Severity: moderate Context: fall - Character of Deficits Additional Deficits: Present: falling Baseline Cognition: Present: alert but disoriented to time Baseline Gait: Present: walks w/o assistance Associated Symptoms: Reports: confused. Denies: fever/chills, neck/back pain Prior Treament: Reports: recently hospitalized - overnight last -Thu Review of Systems - Review of Systems Constitutional: Absent: recent illness EYE: Present: no symptoms reported ENT: Present: no symptoms reported Respiratory: Absent: shortness of breath, cough Cardiology: Present: edema. Absent: chest pain Gastrointestinal/Abdominal: Present: no symptoms reported Genitourinary: Absent: frequency, pain Musculoskeletal: Present: no symptoms reported Skin: Present: no symptoms reported Neurological: Present: See HPI Endocrine: Present: unexplained weight loss - step daughter thinks he lost 80 lbs over the past month Hematologic/Lymphatic: Present: no symptoms reported Psych: Absent: emotional problems - Patient's Past Medical History Patient History - Medical: Diabetes Type 2, Obesity Patient History - Cardiac/Respiratory: CHF, COPD, Hypertension, Hyperlipidemia, Peripheral Vascular Disease, CPAP/BiPAP Home Use, Sleep Apnea Patient History - Cancer: Prostate Patient History - Surgical Procedures: Cancer Surgery, Colonoscopy, T & A, Other , Orthopedic, Urology Patient History - Other: None - Family History Father Family History - Medical: , History Unknown Family History - Cardiac/Respiratory: History Unknown Family History - Cancer: History Unknown Mother Family History - Medical: , History Unknown Family History - Cardiac/Respiratory: History Unknown Family History - Cancer: History Unknown - Social History Living Situations: home Abuse History: No History of abuse Psych History: No pertinent hx Does anyone smoke in the home?: Yes Smoking Status: Current every day smoker Have you smoked in the past 12 months: Yes Alcohol Use: occasionally Drug Use: none - Immunizations Immunizations Up to Date: Yes Hx Pneumococcal Vaccination: No History of Influenza Vaccine: Yes Physical Exam - Physical Exam General Appearance: Present: wd/wn, alert, no apparent distress Head Exam: Present: normal inspection, no evidence of injury Eye Exam: Normal inspection: bilateral, PERRL: bilateral, EOMI: bilateral Ears, Nose, Throat: Present: normal ENT inspection Neck: Present: normal inspection, nontender Respiratory: Present: no respiratory distress, normal breath sounds, lungs clear Cardiovascular/Chest: Present: regular rate, rhythm, no murmur Peripheral Pulses: N=norm/S=strong/W=weak/B=bound/A=absent: Dorsalis-pedis (R): Weak, Dorsalis-pedis (L): Weak Gastrointestinal/Abdominal: Present: normal bowel sounds, nontender, nondistended, soft Extremity Exam: Present: extremity edema - 3+ bilateral Neurological Exam: Present: alert, normal mood/affect, 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 Results and Orders: Laboratory Tests 10/20/16 10/20/16 10/20/16 22:15 22:15 22:19 WBC 8.4 Hgb 12.2 L Hct 37.0 L Plt Count 274 Sodium 142 Potassium 3.6 Chloride 99 Carbon Dioxide 31.2 Anion Gap 15.4 H BUN 50 H Creatinine 2.10 H D BUN/Creatinine Ratio 23.8 H Random Glucose 138 H Calcium 8.6 Total Bilirubin 0.5 AST 18 ALT 20 Alkaline Phosphatase 91 Total Protein 7.9 Albumin 3.2 L Urine Color Urine Appearance Urine pH Ur Specific [place] Urine Protein Urine Glucose (UA) Urine Ketones Urine Blood Urine Nitrate Urine Bilirubin Urine Urobilinogen Ur Leukocyte Esterase Urine RBC Urine WBC Ur Epithelial Cells Urine Bacteria Hyaline Casts Urine Culture Comments Urine Opiates Screen Negative Barbiturate Screen Negative Ur Phencyclidine Scrn Negative Urine Amphetamine Negative U Benzodiazepines Scrn Negative Urine Cocaine Screen Negative Urine Marijuana (THC) Negative Ethyl Alcohol Less than 3.0 10/20/16 22:19 WBC Hgb Hct Plt Count Sodium Potassium Chloride Carbon Dioxide Anion Gap BUN Creatinine BUN/Creatinine Ratio Random Glucose Calcium Total Bilirubin AST ALT Alkaline Phosphatase Total Protein Albumin Urine Color Yellow Urine Appearance Clear Urine pH 7.0 Ur Specific [place] 1.010 Urine Protein Negative Urine Glucose (UA) Negative Urine Ketones Negative Urine Blood Negative Urine Nitrate Negative Urine Bilirubin Negative Urine Urobilinogen Normal Ur Leukocyte Esterase Negative Urine RBC None seen Urine WBC None seen Ur Epithelial Cells None seen Urine Bacteria 2+ H Hyaline Casts Trace Urine Culture Comments Culture to follow Urine Opiates Screen Barbiturate Screen Ur Phencyclidine Scrn Urine Amphetamine U Benzodiazepines Scrn Urine Cocaine Screen Urine Marijuana (THC) Ethyl Alcohol - Vital Signs Patient's Vital Signs:: I have reviewed the patient's vital signs. Vital Signs: Vital Signs 10/20/16 21:30 Temperature 36.5 C Pulse Rate 105 H Respiratory 20 Rate Blood Pressure 129/69 O2 Sat by Pulse 95 Oximetry - EKG EKG: LBBB, other - sinus tachycardia EKG read: Interp. by me - CT/Ultrasound CT/Ultrasound Narrative: No acute hemorrhage or ischemic change Global atrophy mild chronic microvascular changes No fracture sinuses normal - Progress/Reassessment Chief Complaint: Altered Mental Status Progress:: Improved Departure Clinical Impression: Dehydration Mental status change Qualifiers: Altered mental status type: unspecified Qualified Code(s): R41.82 - Altered mental status, unspecified - Departure Disposition: [facility] Condition: Fair
[2016-10-20 22:21] LABS: Hemoglobin 12.2 gm/dL (13.5-18.0); Mean Cell Volume 83.3 fl (78-100); Mean Corpuscular Hemoglobin 27.5 pg (27-31); Mean Platelet Volume 8.7 fl (6.0-9.5); Neutrophil # 6.2 K/mm3 (1.3-6.0); Neutrophil % 73.6 % (42-75.0); Platelet Count 274 K/mm3 (150-450); Red Blood Count 4.44 M/mm3 (4.7-6.0); White Blood Count 8.4 K/mm3 (4.0-10.5)
[2016-10-20 22:29] LABS: Urine Bilirubin Negative (NEGATIVE); Urine Blood Negative /ul (NEGATIVE); Urine Ketone Negative (NEGATIVE); Urine Nitrite Negative (NEGATIVE); Urine Protein Negative (NEGATIVE); Urine Urobilinogen Normal (NORMAL)
[2016-10-20 22:35] LABS: ALT 20 U/L (19-67); AST 18 U/L (0-48); Albumin * 3.2 gm/dl (3.4-5.0); Alkaline Phosphatase * 91 U/L (50-170); Anion Gap 15.4 mmol/L (6.8-13.8); BUN/Creatinine Ratio 23.8 (9.0-21.6); Bilirubin, Total 0.5 mg/dL (0.0-1.1); Blood Urea Nitrogen 50 mg/dL (6-23); Ca. Corrected For Albumin 8.9 mg/dL (8.4-10.2); Calcium * 8.6 mg/dL (7.9-10.9); Carbon Dioxide 31.2 mmol/L (24-32.6); Chloride 99 mmol/L (97-106); Glucose * 138 mg/dL (70-110); Potassium 3.6 mmol/L (3.4-4.6); Sodium 142 mmol/L (132-142); Total Protein 7.9 gm/dL (6.2-8.2)
[2016-10-20 22:39] LABS: Urine Appearance Clear; Urine Bacteria 2+; Urine Color Yellow; Urine Hyaline Cast TRACE /LPF; Urine RBC None Seen /hpf (0-5); Urine WBC None Seen /hpf (0-5)
[2016-10-20 22:41] LABS: Cocaine Ur Negative (NEGATIVE); Urine Barbiturate Negative (NEGATIVE); Urine Benzodiazepines Negative (NEGATIVE); Urine Opiates Negative (NEGATIVE); Urine PCP Negative (NEGATIVE); Urine THC Negative (NEGATIVE)
[2016-10-20] MEDS ORDERED: NORMAL SALINE 1,000 ML IV ONE (23:43)
[2016-10-21] MEDS ORDERED: BUMETANIDE 0.25 MG/ML VIAL IV SCH (01:30)
--- NOTE | 2016-10-21 01:30 | HP ---
Chief Complaint - Chief Complaint Date of Service: 10/21/16 Time of Service: 01:30 Chief Complaint: altered mental status, cough, History of Present Illness: Elliott is a 71 year old patient of Dr Vásquez with a PMH of DM T2, CHF, COPD, HTN, HLD, PVD, EMELYN (not compliant with cpap) and obesity who presented to the ER today with altered mental status. patient recently admitted on 10/16/16 - 10/17/16 for hypokalemia secondary to excessive oral lasix intake. Patient found today by [facility] going the wrong way down a street in town. step daughter indicates that patient was gone and unaccounted for a 6 hour period today. step daughter also informed ERP that she believes patient is not taking his medications correctly. patient informed me that he writes the dosages of his pills on the bottles and takes them out of the bottles daily and has done this habit every day for years. patient does not believe that he is taking his pilling incorrectly. medication review shows that patient is on multiple high-risk medications for AMS, including: xanax, amaryl, metformin, elavil, oxycodone, lyrica, januvia, mirapex, ambien, and prednisone. ER eval revealed wbc wnl. neutrophils 73.6. hgb/hct at 12.2/37.0. bun/cr 50/2.10 (elevated more than last admission). ast/alt wnl. bnp 1285, UA positive for 2+ bacteria. UDS negative. etoh negative. patient c/o productive cough and malaise recently. Patient to be admitted for AMS for further workup. - Patient's Past Medical History Patient History - Medical: Anemia, Diabetes Type 2, Obesity Patient History - Cardiac/Respiratory: CHF, COPD, Hypertension, Hyperlipidemia, Peripheral Vascular Disease, CPAP/BiPAP Home Use, Sleep Apnea Patient History - Cancer: Prostate Patient History - Surgical Procedures: Cancer Surgery, Colonoscopy, T & A, Other , Orthopedic, Urology Patient History - Other: None - Family History Father Family History - Medical: , History Unknown Family History - Cardiac/Respiratory: History Unknown Family History - Cancer: History Unknown Mother Family History - Medical: , History Unknown Family History - Cardiac/Respiratory: History Unknown Family History - Cancer: History Unknown - Social History Living Situations: home Abuse History: No History of abuse Psych History: No pertinent hx Does anyone smoke in the home?: Yes Smoking Status: Current every day smoker Have you smoked in the past 12 months: Yes Patient requests Smoking Cessation Consult: No Initiate information on Smoking Cessation: Yes Alcohol Use: occasionally Drug Use: none - Immunizations Immunizations Up to Date: Yes Hx Pneumococcal Vaccination: No History of Influenza Vaccine: Yes Review Of Systems (GEN) - Review of Systems Generalized/Overall Review: Present: Malaise, Fatigue. Absent: Fever EENTM: Present: No Symptoms Reported Respiratory: Present: Cough Cardiac: Present: Edema. Absent: Syncope Abdominal: Present: No Symptoms Reported Genitourinary: Present: No Symptoms Reported Musculoskeletal: Present: No Symptoms Reported Neurological: Present: No Symptoms Reported Skin: Present: No Symptoms Reported Endocrine: Present: No Symptoms Reported Misc: All systems neg except as marked - patient very vague on some answers. the anwers he said a definate yes to are marked about. patient seemed unsure about the events of today. Allergies/Adverse Reactions: Allergies Allergy/AdvReac Type Severity Reaction Status Date / Time topiramate [From Topamax] AdvReac Intermediate lethargy Verified 10/16/16 09:34 Home Medications: HOME MEDICATIONS ALPRAZolam [Xanax] 1 mg PO TID PRN 07/10/14 [Last Taken Unknown] Aspirin 325 mg PO DAILY 07/10/14 [Last Taken Unknown] Glimepiride [Amaryl] 8 mg PO DAILY 07/10/14 [Last Taken Unknown] Loratadine [Claritin] 10 mg PO DAILY 07/10/14 [Last Taken Unknown] Simvastatin [Zocor] 20 mg PO HS 07/10/14 [Last Taken Unknown] metFORMIN HCL [Glucophage] 1,000 mg PO BID 07/10/14 [Last Taken Unknown] Amitriptyline HCl [Elavil] 100 mg PO HS 05/24/15 [Last Taken Unknown] Fluticasone Furoate [Veramyst] 2 sprays NS DAILY 05/24/15 [Last Taken Unknown] buPROPion HCL [Wellbutrin Xl] 150 mg PO DAILY 05/24/15 [Last Taken Unknown] oxyCODONE HCL [Oxycodone] 20 mg PO Q6H PRN 05/24/15 [Last Taken Unknown] Clotrimazole/Betamet Diprop [Lotrisone Cream] 1 appl TP BID 08/08/16 [Last Taken Unknown] Hydrocortisone Acetate 30 mg RC BID PRN 08/08/16 [Last Taken Unknown] Ipratropium/Albuterol Sulfate [Iprat-Albut 0.5-3(2.5) mg/3 ml] 3 ml IH QID PRN 08/08/16 [Last Taken Unknown] Omeprazole [Prilosec] 20 mg PO DAILY 08/08/16 [Last Taken Unknown] Pregabalin [Lyrica] 75 mg PO BID 08/08/16 [Last Taken Unknown] sitaGLIPtin PHOSPHATE [Januvia] 100 mg PO DAILY 08/08/16 [Last Taken Unknown] Calcium Carbonate [Calcium] 500 mg PO DAILY 08/20/16 [Last Taken Unknown] Pramipexole Di-HCl [Mirapex] 4.5 mg PO HS 08/20/16 [Last Taken Unknown] Zolpidem Tartrate [Ambien] 5 mg PO HS 08/20/16 [Last Taken Unknown] predniSONE [Prednisone] 20 mg PO DAILY 08/20/16 [Last Taken Unknown] Metolazone [Zaroxolyn] 5 mg PO DAILY PRN 10/16/16 [Last Taken Unknown] Potassium Chloride [K-Dur] 40 meq PO DAILY #60 tablet.sa 10/17/16 [Last Taken Unknown] Exam - Exam Vital Signs: Vital Signs - Last Taken Temp 36.5 C 10/21/16 00:47 Pulse 94 10/21/16 00:47 Resp 20 10/21/16 00:47 BP 108/62 10/21/16 00:47 Pulse Ox 94 10/21/16 00:47 Constitutional: Present: Cooperative, No distress, Elderly, Obese ENT Exam: Present: hearing grossly normal Neck: Present: full range of motion, supple Back Exam: Present: no vertebral tenderness Breasts: Present: Exam deferred Respiratory: Present: no respiratory distress, rales, rhonchi - right mid to lower lung and left lower lung Cardiovascular/Chest: Present: regular rate, rhythm, no chest tenderness Peripheral Pulses: carotid (R): 2+, carotid (L): 2+, radial (R): 2+, radial (L) : 2+ Abdomen: Present: soft, nontender, nondistended, obese /Rectal: Present: Exam deferred Extremity: Present: non-tender, lower extremity edema - 3+ bilat with edema stocking bilat Skin Exam: Present: warm/dry, no cyanosis, pallor Diagnostic Studies: Laboratory Results WBC 8.4 K/mm3 (4.0-10.5) 10/20/16 22:15 RBC 4.44 M/mm3 (4.7-6.0) L 10/20/16 22:15 Hgb 12.2 gm/dL (13.5-18.0) L 10/20/16 22:15 Hct 37.0 % (42.0-52.0) L 10/20/16 22:15 MCV 83.3 fl (78-100) 10/20/16 22:15 MCH 27.5 pg (27-31) 10/20/16 22:15 MCHC 33.0 g/dl (32-36) 10/20/16 22:15 RDW 15.0 % (11.5-14.0) H 10/20/16 22:15 Plt Count 274 K/mm3 (150-450) 10/20/16 22:15 MPV 8.7 fl (6.0-9.5) 10/20/16 22:15 Immature Gran % (Auto) 0.40 % (0.001-0.429) 10/20/16 22:15 Immature Gran # (Auto) 0.03 K/mm3 (0.000-0.0310) 10/20/16 22:15 Neutrophils % 73.6 % (42-75.0) 10/20/16 22:15 Lymphocytes % 17.6 % (20-51) L 10/20/16 22:15 Monocytes % 6.2 % (0.0-9) 10/20/16 22:15 Eosinophils % 1.8 % (0.0-3.0) 10/20/16 22:15 Basophils % 0.4 % (0.0-1.0) 10/20/16 22:15 Nucleated RBC % 0.0 k/mm3 (0-1) 10/20/16 22:15 Neutrophils # 6.2 K/mm3 (1.3-6.0) H 10/20/16 22:15 Lymphocytes # 1.5 k/mm3 (1.5-3.5) 10/20/16 22:15 Monocytes # 0.5 k/mm3 (0.0-1.0) 10/20/16 22:15 Eosinophils # 0.2 k/mm3 (0.0-0.7) 10/20/16 22:15 Absolute Basophils 0.0 k/mm3 (0.0-0.1) 10/20/16 22:15 Sodium 142 mmol/L (132-142) 10/20/16 22:15 Plasma Sodium 143 mmol/L (130-142) H 10/20/16 22:15 Potassium 3.6 mmol/L (3.4-4.6) 10/20/16 22:15 Chloride 99 mmol/L (97-106) 10/20/16 22:15 Carbon Dioxide 31.2 mmol/L (24-32.6) 10/20/16 22:15 Anion Gap 15.4 mmol/L (6.8-13.8) H 10/20/16 22:15 BUN 50 mg/dL (6-23) H 10/20/16 22:15 Creatinine 2.10 mg/dL (0.4-1.4) H D 10/20/16 22:15 Est GFR (Non-Af Amer) 33 mL/min (60-130) L D 10/20/16 22:15 BUN/Creatinine Ratio 23.8 (9.0-21.6) H 10/20/16 22:15 Random Glucose 138 mg/dL (70-110) H 10/20/16 22:15 Lactic Acid, Venous 1.3 mmol/L (0.4-1.9) 10/20/16 22:15 Calcium 8.6 mg/dL (7.9-10.9) 10/20/16 22:15 Calcium Adj for Albumin 8.9 mg/dL (8.4-10.2) 10/20/16 22:15 Total Bilirubin 0.5 mg/dL (0.0-1.1) 10/20/16 22:15 AST 18 U/L (0-48) 10/20/16 22:15 ALT 20 U/L (19-67) 10/20/16 22:15 Alkaline Phosphatase 91 U/L (50-170) 10/20/16 22:15 Ammonia 22.0 mcmol/L (11-35) 10/21/16 00:55 B-Natriuretic Peptide 1285 pg/mL (5-350) H 10/20/16 22:15 Total Protein 7.9 gm/dL (6.2-8.2) 10/20/16 22:15 Albumin 3.2 gm/dl (3.4-5.0) L 10/20/16 22:15 Urine Color Yellow 10/20/16 22:19 Urine Appearance Clear 10/20/16 22:19 Urine pH 7.0 pH (5.0-7.0) 10/20/16 22:19 Ur Specific [place] 1.010 SP.GR. (1.005-1.030) 10/20/16 22:19 Urine Protein Negative mg/dL (NEGATIVE) 10/20/16 22:19 Urine Glucose (UA) Negative mg/dL (NEGATIVE) 10/20/16 22:19 Urine Ketones Negative mg/dL (NEGATIVE) 10/20/16 22:19 Urine Blood Negative /ul (NEGATIVE) 10/20/16 22:19 Urine Nitrate Negative (NEGATIVE) 10/20/16 22:19 Urine Bilirubin Negative mg/dl (NEGATIVE) 10/20/16 22:19 Urine Urobilinogen Normal EU/dl (NORMAL) 10/20/16 22:19 Ur Leukocyte Esterase Negative /ul (NEGATIVE) 10/20/16 22:19 Urine RBC None seen /hpf (0-5) 10/20/16 22:19 Urine WBC None seen /hpf (0-5) 10/20/16 22:19 Ur Epithelial Cells None seen /hpf (0-5) 10/20/16 22:19 Urine Bacteria 2+ (NONE) H 10/20/16 22:19 Hyaline Casts Trace /LPF (NONE) 10/20/16 22:19 Urine Culture Comments Culture to follow 10/20/16 22:19 Urine Opiates Screen Negative (NEGATIVE) 10/20/16 22:19 Barbiturate Screen Negative (NEGATIVE) 10/20/16 22:19 Ur Phencyclidine Scrn Negative (NEGATIVE) 10/20/16 22:19 Urine Amphetamine Negative (NEGATIVE) 10/20/16 22:19 U Benzodiazepines Scrn Negative (NEGATIVE) 10/20/16 22:19 Urine Cocaine Screen Negative (NEGATIVE) 10/20/16 22:19 Urine Marijuana (THC) Negative (NEGATIVE) 10/20/16 22:19 Ethyl Alcohol Less than 3.0 mg/dL (0.0-10.0) 10/20/16 22:15 Assessment/Plan - Narrative Narrative: Altered Mental Status (AMS) - ? etiology, multiple possibilities exist and may actually be a combination of etiologies - patient in a multiple high risk meds: - these can increase possibility of AMS, especially with the possibility with patient not taking them correctly. - check chest xray, especially with history of chf, and elevated bnp. - check troponin, with AMS pt may not be competent enough to accurately tell us if he is having chest pain or not. - check ammonia level, lactic acid, procalctonin, and vitamin b12 - check blood culture if indicated. - chest chest xray - pt c/o cough, pna can cause confusion in elderly. - patient's blood sugar dropped after admission --> could be a BIG factor into his AMS - hold DM meds for now. - hold xanax, ambien, oxycodone - these are non-essential and worsen AMS - try to abstain from these meds while admitted and confused. - however, UDS negative for benzo and opiates, so patient may not have been taking them today. - monitor on tele - vital signs q 4 hours - BS QID at a minimum - sooner if needed. use low dose sliding scale for now if blood sugar starts to rise later in the day. - reassess in the am with Dr. Vásquez pulmonary edema - seen on chest xray as read by ERP - bumex 1 mg iv x1 - 10/21/16 - lungs sound abnormal with rales and rhonchi bilat lower lobes - recheck labs in am - incentive spirometer q 2hours while awake CHF exac, diastolic - with pulmonary edema - give 1 mg iv bumex - patient has a history of responding better to this medication - strict I&Os - daily weights - CHF teaching - check labs in am. PNA - based on clinical exam - also c/o cough and malaise - no fever but may be early infection - start iv antibiotics - Rocephin 1 gm iv daily - Day #1 - Azithromycin 500 mg iv daily - Day #1 - incentive spirometer q 2 hours - encourage ambulation / up to chair to for meals - sputum culture ordered - urine ordered for legonella and strep pneumonia ag. bacteria in urine - urine culture pending - rocephin given for pna will also cover uti if urine culture grows anything hypoglycemia - may play a big factor in his confusion - hold DM meds for now - use short acting insulin as needed, low dose sliding scale, to cover any elevated blood sugars in they arise later today. - continue to monitor blood glucose closely. DM - accuchecks QID, sooner if needed COPD - check ABG given confusion and non-compliance with cpap. - vital signs with O2 sats. HTN - vital signs q 4 hours EMELYN - non-compliant with cpap. code status: DNR VTE: early ambulation for now GI proph: protonix po. - Assessment/Plan (1) Pulmonary edema Problem: Acute Qualifiers: Chronicity: acute Qualified Code(s): J81.0 - Acute pulmonary edema (2) Altered mental status Problem: Acute Qualifiers: Altered mental status type: unspecified Qualified Code(s): R41.82 - Altered mental status, unspecified (3) CHF exacerbation Problem: Acute Qualifiers: Congestive heart failure type: diastolic Qualified Code(s): I50.33 - Acute on chronic diastolic (congestive) heart failure (4) Pneumonia Problem: Acute Qualifiers: Pneumonia type: due to unspecified organism Laterality: unspecified laterality Lung location: unspecified part of lung Qualified Code(s): J18.9 - Pneumonia, unspecified organism (5) Hypoglycemia Problem: Acute (6) Bacteria in urine Problem: Acute (7) Diabetes Problem: Chronic Qualifiers: Diabetes mellitus type: type 2 Diabetes mellitus complication status: with kidney complications Diabetes mellitus complication detail: with other kidney complication Diabetes mellitus buttermaker helper insulin use: without buttermaker helper use Qualified Code(s): E11.29 - Type 2 diabetes mellitus with other diabetic kidney complication (8) COPD (chronic obstructive pulmonary disease) Problem: Chronic Qualifiers: COPD type: unspecified COPD Qualified Code(s): J44.9 - Chronic obstructive pulmonary disease, unspecified (9) HTN (hypertension) Problem: Chronic Qualifiers: Hypertension type: essential hypertension Qualified Code(s): I10 - Essential (primary) hypertension (10) HLD (hyperlipidemia) Problem: Chronic Qualifiers: Hyperlipidemia type: unspecified Qualified Code(s): E78.5 - Hyperlipidemia , unspecified (11) PVD (peripheral vascular disease) Problem: Chronic (12) Obstructive sleep apnea Problem: Chronic
[2016-10-21] MEDS ORDERED: ACETAMINOPHEN 325 MG TABLET PO PRN (01:32)
[2016-10-21] MEDS ORDERED: ALBUTEROL SULFATE/IPRATROPIUM 3 ML NEBU IH PRN (01:35)
[2016-10-21 01:44] LABS: Salicylate Less than 2.8 mg/dL (2.8-20.0); Vitamin B12 558 pg/mL (193-986)
[2016-10-21 01:45] LABS: Troponin I 0.018 ng/ml (0.00-0.10)
[2016-10-21] MEDS: PRAMIPEXOLE DI-HCL 0.5 MG TABLET PO SCH ×2 (02:11→21:11)
[2016-10-21] MEDS ORDERED: AZITHROMYCIN 500 MG in DEXTROSE 5 % IN WATER 250 ML IV SCH ×2 (02:30)
[2016-10-21] MEDS ORDERED: GLIMEPIRIDE 4 MG TABLET PO SCH (07:00)
[2016-10-21] MEDS: INSULIN LISPRO 100 UNITS/ML VIAL SC SCH ×4 (07:35→21:09)
[2016-10-21] MEDS: PANTOPRAZOLE SODIUM 20 MG TABLET.DR PO SCH (07:37)
[2016-10-21] MEDS ORDERED: NON-FORMULARY 1 DOSE DOSE (Sitagliptin Phosphate [Januvia] 100 MG) PO SCH (09:00)
[2016-10-21] MEDS ORDERED: predniSONE 20 MG TABLET PO SCH (09:00)
[2016-10-21] MEDS: PREGABALIN 75 MG CAPSULE PO SCH ×2 (10:00→21:11)
[2016-10-21] MEDS: FLUTICASONE PROPIONATE 120 SPRAY INHALER NS SCH (10:00)
[2016-10-21] MEDS: CALCIUM CARBONATE 500 MG TAB.CHEW PO SCH (10:00)
[2016-10-21] MEDS: buPROPion HCL 150 MG TAB.SR.24H PO SCH (10:00)
[2016-10-21] MEDS: ASPIRIN 325 MG TABLET.DR PO SCH (10:00)
[2016-10-21] MEDS: POTASSIUM CHLORIDE 20 MEQ TABLET.SA PO SCH (10:00)
[2016-10-21] MEDS: LORATADINE 10 MG TABLET PO SCH (10:01)
[2016-10-21] MEDS ORDERED: AMITRIPTYLINE HCL 50 MG TABLET PO SCH (21:00)
[2016-10-21] MEDS ORDERED: SIMVASTATIN 20 MG TABLET PO SCH (21:00)
[2016-10-22] MEDS: INSULIN LISPRO 100 UNITS/ML VIAL SC SCH ×2 (07:30→11:42)
[2016-10-22] MEDS: PANTOPRAZOLE SODIUM 20 MG TABLET.DR PO SCH (07:31)
--- NOTE | 2016-10-22 08:51 | DS ---
(1) Mental status change Problem: Acute Description of Stay: Elliott is a 71 yo male that was admitted for altered mental status. He has had multiple episodes over the last few months. He has been losing weight and blood sugars have been improving. He reports some lows but is unsure if he has been low during episodes of confusion. He was also on several sedating medications. Diabetic and sedative medications were held and he improved in his mentation. Blood sugars remained controlled. He reports feeling great and more awake. Medications were adjusted and explained at discharge. Procedures Performed: none Discharge Disposition: Home self care Disposition: Home self-care Condition: Fair Discharge Activity: Activity as tolerated Discharge Diet: Consistent carbs, Low salt Referrals: Jonathan Vásquez DO [Primary Care Provider] - One Week Problem Oriented Discharge Instructions to Patient/Family: Confusion Additional Patient Instructions (free text): Follow up appointment with Dr. Vásquez on 10/29/16 at 10:00am. Complete Home Medications List: Complete Home Medication List: ALPRAZolam [Xanax] 1 mg PO TID PRN 07/10/14 Aspirin 325 mg PO DAILY 07/10/14 Loratadine [Claritin] 10 mg PO DAILY 07/10/14 Simvastatin [Zocor] 20 mg PO HS 07/10/14 metFORMIN HCL [Glucophage] 1,000 mg PO BID 07/10/14 Fluticasone Furoate [Veramyst] 2 sprays NS DAILY 05/24/15 buPROPion HCL [Wellbutrin Xl] 150 mg PO DAILY 05/24/15 oxyCODONE HCL [Oxycodone] 20 mg PO Q6H PRN 05/24/15 Clotrimazole/Betamet Diprop [Lotrisone Cream] 1 appl TP BID 08/08/16 Hydrocortisone Acetate 30 mg RC BID PRN 08/08/16 Ipratropium/Albuterol Sulfate [Iprat-Albut 0.5-3(2.5) mg/3 ml] 3 ml IH QID PRN 08/08/16 sitaGLIPtin PHOSPHATE [Januvia] 100 mg PO DAILY 08/08/16 Calcium Carbonate [Calcium] 500 mg PO DAILY 08/20/16 Pramipexole Di-HCl [Mirapex] 4.5 mg PO HS 08/20/16 Metolazone [Zaroxolyn] 5 mg PO DAILY PRN 10/16/16 Potassium Chloride [K-Dur] 20 meq PO DAILY 10/21/16
[2016-10-22] MEDS: LORATADINE 10 MG TABLET PO SCH (08:57)
[2016-10-22] MEDS: CALCIUM CARBONATE 500 MG TAB.CHEW PO SCH (08:57)
[2016-10-22] MEDS: POTASSIUM CHLORIDE 20 MEQ TABLET.SA PO SCH (08:57)
[2016-10-22] MEDS: FLUTICASONE PROPIONATE 120 SPRAY INHALER NS SCH (08:57)
[2016-10-22] MEDS: ASPIRIN 325 MG TABLET.DR PO SCH (08:57)
[2016-10-22] MEDS: buPROPion HCL 150 MG TAB.SR.24H PO SCH (08:58)
[2016-10-22] MEDS: PREGABALIN 75 MG CAPSULE PO SCH (09:00)
[2016-10-22 10:40] VITALS: BP 118/72
== END 2016-10-22 12:15 | disposition home or self-care (01) ==
LOC: ER 21:23 → MS 10-21 00:07
PROVIDERS: ADMIT Nurse Practitioner Critical Care Medicine; ATTEND Family Medicine
PROC: 0T9B7ZZ Drainage of Bladder, Via Natural or Artificial Opening (ICD-10-PCS; principal; 2016-10-20)
DX: R41.82 Altered mental status, unspecified (principal); E86.0 Dehydration; E11.9 Type 2 diabetes mellitus without complications; Z79.84 Long term (current) use of oral hypoglycemic drugs; I10 Essential (primary) hypertension; J81.0 Acute pulmonary edema; I50.33 Acute on chronic diastolic (congestive) heart failure; J44.9 Chronic obstructive pulmonary disease, unspecified; E78.5 Hyperlipidemia, unspecified; E66.9 Obesity, unspecified; Z68.38 Body mass index [BMI] 38.0-38.9, adult
CPT/HCPCS: 36415; 36600; 51701; 70450; 71010; 80053; 80307; 81001; 82140; 82607; 82803; 83605; 83880; 84145; 84484; 85025; 87040; 87081; 87086; 87449; 93005; 94762; 96360; 97161; 97165; 99284; G0378; G0480; G0481; G8978; G8979; G8980; G8987; G8988; G8989

== ENCOUNTER 2016-11-11 23:26 | Emergency (ER) | payer MEDICARE, OTHER ==
[2016-11-11 23:37] VITALS: BP 110/59
--- NOTE | 2016-11-12 00:12 | ERNOTE ---
Lower Extremity HPI - General Lower Extremities Pain: leg: left - edema and blistering Time Seen by Provider: 11/11/16 23:54 Source: patient, family Exam Limitations: no limitations - Immun/Allergies/Home Medications Immunizations: IMMUNIZATION HX Immunizations Up to Date Yes History of Influenza Vaccine Yes Hx Pneumococcal Vaccination Yes Allergies/Adverse Reactions: Allergies Allergy/AdvReac Type Severity Reaction Status Date / Time topiramate [From Topamax] AdvReac Intermediate lethargy Verified 11/11/16 23:37 Home Medications: HOME MEDICATIONS ALPRAZolam [Xanax] 1 mg PO TID PRN 07/10/14 [Last Taken Unknown] Aspirin 325 mg PO DAILY 07/10/14 [Last Taken Unknown] Loratadine [Claritin] 10 mg PO DAILY 07/10/14 [Last Taken Unknown] Simvastatin [Zocor] 20 mg PO HS 07/10/14 [Last Taken Unknown] metFORMIN HCL [Glucophage] 1,000 mg PO BID 07/10/14 [Last Taken Unknown] Fluticasone Furoate [Veramyst] 2 sprays NS DAILY 05/24/15 [Last Taken Unknown] buPROPion HCL [Wellbutrin Xl] 150 mg PO DAILY 05/24/15 [Last Taken Unknown] oxyCODONE HCL [Oxycodone] 20 mg PO Q6H PRN 05/24/15 [Last Taken Unknown] Clotrimazole/Betamet Diprop [Lotrisone Cream] 1 appl TP BID 08/08/16 [Last Taken Unknown] Hydrocortisone Acetate 30 mg RC BID PRN 08/08/16 [Last Taken Unknown] Ipratropium/Albuterol Sulfate [Iprat-Albut 0.5-3(2.5) mg/3 ml] 3 ml IH QID PRN 08/08/16 [Last Taken Unknown] sitaGLIPtin PHOSPHATE [Januvia] 100 mg PO DAILY 08/08/16 [Last Taken Unknown] Calcium Carbonate [Calcium] 500 mg PO DAILY 08/20/16 [Last Taken Unknown] Pramipexole Di-HCl [Mirapex] 4.5 mg PO HS 08/20/16 [Last Taken Unknown] Metolazone [Zaroxolyn] 5 mg PO DAILY PRN 10/16/16 [Last Taken Unknown] Potassium Chloride [K-Dur] 20 meq PO DAILY 10/21/16 [Last Taken Unknown] - History of Present Illness Narrative: Pt has chronic wounds on his left leg due to a remote Tib/ Fib fracture. His wraps were bothering him a few days ago and he cut the top of the wrap to loosen it somewhat, but left the tight underwrap above it. The tissue between his unaboot and the under wrap began to swell and then today blistered. One of the blisters went down but one has remained. Occurred: yesterday Location of Incident: home Other Injuries: Reports: none Prior Treament: Reports: recently seen - by the wound clinic and gets his legs wrapped due to edema. Review of Systems - Review of Systems Constitutional: Absent: recent illness EYE: Present: no symptoms reported ENT: Present: no symptoms reported Respiratory: Absent: shortness of breath Cardiology: Present: edema. Absent: chest pain Gastrointestinal/Abdominal: Present: no symptoms reported Genitourinary: Present: frequency Musculoskeletal: Present: no symptoms reported Skin: Present: See HPI Neurological: Present: no symptoms reported Endocrine: Present: no symptoms reported Hematologic/Lymphatic: Present: no symptoms reported Psych: Present: no symptoms reported - Patient's Past Medical History Patient History - Medical: Diabetes Type 2, Obesity Patient History - Cardiac/Respiratory: CHF, COPD, Hypertension, Hyperlipidemia, Peripheral Vascular Disease, CPAP/BiPAP Home Use, Sleep Apnea Patient History - Cancer: Prostate Patient History - Surgical Procedures: Cancer Surgery, Colonoscopy, T & A, Other , Orthopedic, Urology Patient History - Other: None - Family History Father Family History - Medical: , History Unknown Family History - Cardiac/Respiratory: History Unknown Family History - Cancer: History Unknown Mother Family History - Medical: , History Unknown Family History - Cardiac/Respiratory: History Unknown Family History - Cancer: History Unknown - Social History Living Situations: home Abuse History: No History of abuse Psych History: No pertinent hx Does anyone smoke in the home?: Yes Smoking Status: Current every day smoker Alcohol Use: rarely Drug Use: none - Immunizations Immunizations Up to Date: Yes Hx Pneumococcal Vaccination: Yes History of Influenza Vaccine: Yes Physical Exam - Physical Exam General Appearance: Present: wd/wn, alert, no apparent distress Head Exam: Present: normal inspection, no evidence of injury Respiratory: Present: no respiratory distress, no accessory muscle use Extremity Exam: Present: extremity edema - 3+ with taught blister medial/ anterior approx 2X4 cm, 6 cm below the knee just above his Unaboot. Neurological Exam: Present: alert, oriented, normal mood/affect Skin Exam: Present: other - see above ED Progress - Vital Signs Vital Signs: Vital Signs 11/11/16 23:32 Temperature 36.4 C L Pulse Rate 103 H Respiratory 18 Rate Blood Pressure 110/59 O2 Sat by Pulse 98 Oximetry - Progress/Reassessment Chief Complaint: Lower Extremity Pain/ Injury Progress Note-Subjective: 11/12/16 00:11 I will try to keep the blister intact due to his long standing poor healing. KOKO wrap ordered to be placed over the area above the Unaboot and below the knee. Departure Clinical Impression: Venous insufficiency (chronic) (peripheral) Edema Qualifiers: Edema type: localized Qualified Code(s): R60.0 - Localized edema - Departure Disposition: Home Follow Up Needed Condition: Good Instructions: Edema, [id number] Additional Instructions: Keep the KOKO wrap on until your legs wraps are changed tomorrow. Only take KOKO wrap off if you begin having increased pain. Referrals: Jonathan Vásquez, [Primary Care Provider] -
== END 2016-11-12 00:32 | disposition home or self-care (01) ==
LOC: ER 23:26
DX: I87.2 Venous insufficiency (chronic) (peripheral) (principal); R60.0 Localized edema; Z85.46 Personal history of malignant neoplasm of prostate; F17.200 Nicotine dependence, unspecified, uncomplicated

== ENCOUNTER 2017-01-25 05:34 | Emergency (ER) | payer MEDICARE, OTHER ==
--- NOTE | 2017-01-25 06:11 | ERNOTE ---
Lower Extremity HPI - Narrative Date of Service: 01/25/17 - General Time Seen by Provider: 01/25/17 05:38 Source: patient Exam Limitations: no limitations - Immun/Allergies/Home Medications Immunizations: IMMUNIZATION HX Immunizations Up to Date No: unknown History of Influenza Vaccine Yes Hx Pneumococcal Vaccination Yes Allergies/Adverse Reactions: Allergies Allergy/AdvReac Type Severity Reaction Status Date / Time topiramate [From Topamax] AdvReac Intermediate lethargy Verified 01/25/17 05:45 Home Medications: HOME MEDICATIONS ALPRAZolam [Xanax] 1 mg PO TID PRN 07/10/14 [Last Taken Unknown] Aspirin 325 mg PO DAILY 07/10/14 [Last Taken Unknown] Loratadine [Claritin] 10 mg PO DAILY 07/10/14 [Last Taken Unknown] Simvastatin [Zocor] 20 mg PO HS 07/10/14 [Last Taken Unknown] metFORMIN HCL [Glucophage] 1,000 mg PO BID 07/10/14 [Last Taken Unknown] Fluticasone Furoate [Veramyst] 2 sprays NS DAILY 05/24/15 [Last Taken Unknown] buPROPion HCL [Wellbutrin Xl] 150 mg PO DAILY 05/24/15 [Last Taken Unknown] oxyCODONE HCL [Oxycodone] 20 mg PO Q6H PRN 05/24/15 [Last Taken Unknown] Clotrimazole/Betamet Diprop [Lotrisone Cream] 1 appl TP BID 08/08/16 [Last Taken Unknown] Hydrocortisone Acetate 30 mg RC BID PRN 08/08/16 [Last Taken Unknown] Ipratropium/Albuterol Sulfate [Iprat-Albut 0.5-3(2.5) mg/3 ml] 3 ml IH QID PRN 08/08/16 [Last Taken Unknown] sitaGLIPtin PHOSPHATE [Januvia] 100 mg PO DAILY 08/08/16 [Last Taken Unknown] Calcium Carbonate [Calcium] 500 mg PO DAILY 08/20/16 [Last Taken Unknown] Pramipexole Di-HCl [Mirapex] 4.5 mg PO HS 08/20/16 [Last Taken Unknown] Metolazone [Zaroxolyn] 5 mg PO DAILY PRN 10/16/16 [Last Taken Unknown] Potassium Chloride [K-Dur] 20 meq PO DAILY 10/21/16 [Last Taken Unknown] - History of Present Illness Narrative: Patient is brought in by EMS for having had a fall during which he sustained injury to his left foot and left leg. Patient denies having hit his head he states that he tripped he did not have a syncopal episode and he recalls the entire incident subsequently he called EMS and asked EMS to bring him into the emergency room. - Patient's Past Medical History Patient History - Medical: Diabetes Type 2, Obesity Patient History - Cardiac/Respiratory: CHF, COPD, Hypertension, Hyperlipidemia, Peripheral Vascular Disease, CPAP/BiPAP Home Use, Sleep Apnea Patient History - Cancer: Prostate Patient History - Surgical Procedures: Cancer Surgery, Colonoscopy, T & A, Other , Orthopedic, Urology Patient History - Other: None - Family History Father Family History - Medical: , History Unknown Family History - Cardiac/Respiratory: History Unknown Family History - Cancer: History Unknown Mother Family History - Medical: , History Unknown Family History - Cardiac/Respiratory: History Unknown Family History - Cancer: History Unknown - Social History Living Situations: home Abuse History: No History of abuse Psych History: No pertinent hx Smoking Status: Current every day smoker Have you smoked in the past 12 months: Yes Do you dip or chew tobacco: No Alcohol Use: occasionally Drug Use: none - Immunizations Immunizations Up to Date: No - unknown Hx Pneumococcal Vaccination: Yes History of Influenza Vaccine: Yes Physical Exam - Physical Exam General Appearance: Present: wd/wn, alert, no apparent distress, other Head Exam: Present: normal inspection - patient is morbidly obese but he is not in any distress, no evidence of injury Eye Exam: Normal inspection: bilateral, PERRL: bilateral, EOMI: bilateral Neck: Present: normal inspection, nontender Respiratory: Present: no respiratory distress, normal breath sounds, no accessory muscle use, chest nontender, lungs clear Cardiovascular/Chest: Present: regular rate, rhythm, no murmur, normal peripheral pulses Gastrointestinal/Abdominal: Present: normal bowel sounds, nontender, nondistended, soft Extremity Exam: Present: other - patient does have venous stasis of both lower extremities she does have a V-shaped skin tear to the anterior tibial surface on the left lower extremity. ED Progress - Vital Signs Patient's Vital Signs:: I have reviewed the patient's vital signs. Vital Signs: Vital Signs 01/25/17 05:41 Temperature 36 C L Pulse Rate 92 Respiratory 20 Rate Blood Pressure 137/68 O2 Sat by Pulse 100 Oximetry - Progress/Reassessment Chief Complaint: Foot Injury/Pain Plan - Plan Plan: Patient's examination is essentially benign this patient has a skin tear of the left anterior tibial region mid shaft. At this time this patient's skin tear was cleaned and Steri-Strips were used for closure and a bulky pressure dressing was applied and he is stable and appropriate to be discharged home. Patient insists that he has had a tetanus shot in the past 10 years. Departure Clinical Impression: Skin tear of left lower leg without complication Qualifiers: Encounter type: initial encounter Qualified Code(s): S81.812A - Laceration without foreign body, left lower leg, initial encounter - Departure Disposition: Home self-care Condition: Stable Instructions: Fall Prevention in the Home, [id number] Additional Instructions: Please keep the dressing on your skin tear on her left leg and go see her primary care doctor tomorrow. He is ambulate with care or an assistive device.
[2017-01-25 06:50] VITALS: BP 140/86
== END 2017-01-25 07:39 | disposition home or self-care (01) ==
LOC: ER 05:34
DX: S81.812A Laceration without foreign body, left lower leg, initial encounter (principal); F17.200 Nicotine dependence, unspecified, uncomplicated; W01.0XXA Fall on same level from slipping, tripping and stumbling without subsequent striking against object, initial encounter

== ENCOUNTER 2017-01-30 12:20 | Day surgery (SDC) | payer MEDICARE, OTHER ==
[~2017-01-30 12:20] MED LIST: RINGER'S SOLUTION,LACTATED 1,000 ML IV PRN
[2017-01-30] MEDS ORDERED: RINGER'S SOLUTION,LACTATED 1,000 ML IV ONE (13:00)
[2017-01-30] MEDS ORDERED: BUPIVACAINE HCL/EPINEPHRINE/PF 30 ML VIAL IJ ONE (13:59)
--- NOTE | 2017-01-30 14:19 | OR ---
Operative Report - Dictated Report Narrative: Date: 01/30/2017 Preop dx: External hemorrhoidal skin tags Postop dx: Same Procedure: Excision external hemorrhoidal skin tags x 3 Staff surgeon: Babak Wooten MD Anesthesia: local/MAC EBL: < 5cc Specimens: Hemorrhoidal tags x 3 Description: The patient underwent the induction of conscious sedation and was then rolled into the prone carolyn-knife position and the buttocks were taped apart. All pressure points were appropriately padded. The anus was prepped and drapped in a sterile fashion. An anal field block was performed on the right side with 0.5 % marcaine with epinephrine. A large pedunculated tag was found at the 1:00 radius and was transected flush with the skin with a ligasure device. Care was taken to not entrain underlying sphincteric mechanism. In a similar fashion two smaller tags were excised at 3:00 and 4:00 respectively. These specimens were submitted together for anatomic pathology. Hemostasis was adequate. The anal canal was packed with marcaine soaked gelfoam and an anal retentive dressing was applied. The patient tolerated the procedure well without apparent complications and discharged from the operating room in stable condition.
[2017-01-30 15:20] VITALS: BP 117/65
== END 2017-01-30 12:21 | disposition home or self-care (01) ==
LOC: AMB 12:20
PROVIDERS: ATTEND Specialist
PROC: 0DBQXZZ Excision of Anus, External Approach (ICD-10-PCS; principal; 2017-01-30 14:15)
DX: K64.4 Residual hemorrhoidal skin tags (principal); E11.9 Type 2 diabetes mellitus without complications; E78.00 Pure hypercholesterolemia, unspecified; I10 Essential (primary) hypertension; K59.00 Constipation, unspecified; G47.33 Obstructive sleep apnea (adult) (pediatric); G47.00 Insomnia, unspecified; Z87.891 Personal history of nicotine dependence; Z68.41 Body mass index [BMI] 40.0-44.9, adult

== ENCOUNTER 2017-02-02 21:41 | Inpatient (IN) | payer MEDICARE, OTHER ==
--- NOTE | 2017-02-02 23:14 | ERNOTE ---
Neuro HPI ER Record Presenting Symptoms: weakness, confusion Time Seen by Provider: 02/02/17 23:08 Source: family Exam Limitations: clinical condition Immunizations: IMMUNIZATION HX Immunizations Up to Date Yes History of Influenza Vaccine Yes Hx Pneumococcal Vaccination Yes Allergies/Adverse Reactions: Allergies Allergy/AdvReac Type Severity Reaction Status Date / Time topiramate [From Topamax] Allergy Intermediate DRUG Verified 01/30/17 13:02 TOXICITY, ENCEPHALOPATHY Home Medications: HOME MEDICATIONS ALPRAZolam [Xanax] 1 mg PO TID PRN 07/10/14 [Last Taken Unknown] Loratadine [Claritin] 10 mg PO DAILY 07/10/14 [Last Taken Unknown] Simvastatin [Zocor] 20 mg PO HS 07/10/14 [Last Taken Unknown] metFORMIN HCL [Glucophage] 1,000 mg PO BID 07/10/14 [Last Taken Unknown] Fluticasone Furoate [Veramyst] 2 sprays NS DAILY 05/24/15 [Last Taken Unknown] buPROPion HCL [Wellbutrin Xl] 150 mg PO DAILY 05/24/15 [Last Taken Unknown] Clotrimazole/Betamet Diprop [Lotrisone Cream] 1 appl TP BID 08/08/16 [Last Taken Unknown] Hydrocortisone Acetate 30 mg RC BID PRN 08/08/16 [Last Taken Unknown] Ipratropium/Albuterol Sulfate [Iprat-Albut 0.5-3(2.5) mg/3 ml] 3 ml IH QID PRN 08/08/16 [Last Taken Unknown] sitaGLIPtin PHOSPHATE [Januvia] 100 mg PO DAILY 08/08/16 [Last Taken Unknown] Pramipexole Di-HCl [Mirapex] 4.5 mg PO HS 08/20/16 [Last Taken Unknown] Metolazone [Zaroxolyn] 5 mg PO DAILY 10/16/16 [Last Taken Unknown] Furosemide [Lasix] 80 mg PO DAILY PRN 01/28/17 [Last Taken Unknown] Potassium Chloride [Klor-Con 10] 30 meq PO DAILY 01/28/17 [Last Taken Unknown] oxyCODONE HCL [Oxycodone HCl] 20 mg PO Q6H 01/28/17 [Last Taken Unknown] traZODone HCL [Desyrel] 50 mg PO HS 01/28/17 [Last Taken Unknown] - History of Present Illness Narrative: Pt has been more confused lately and has strange behaviors like acting like he is cutting something when he has nothing in his hands. Pt is clear and oriented at this time Onset: gradual onset Severity: moderate Context: fall - frequently without - Character of Deficits New weakness: Present: general (diffuse) Additional Deficits: Present: decrease ability to stand, decrease ability to walk, falling Associated Symptoms: Reports: fever/chills, sweating, altered mental status, confused Review of Systems - Review of Systems Constitutional: Absent: recent illness EYE: Present: no symptoms reported ENT: Present: no symptoms reported Respiratory: Present: shortness of breath Cardiology: Absent: chest pain Gastrointestinal/Abdominal: Absent: nausea, vomiting Genitourinary: Absent: frequency, pain Musculoskeletal: Present: no symptoms reported Skin: Present: lesions - Lower leg stasis ulcers, Neurological: Present: See HPI. Absent: headache Hematologic/Lymphatic: Present: easy bleeding Psych: Present: no symptoms reported - Patient's Past Medical History Patient History - Medical: Diabetes Type 2, Obesity, Other Patient History - Cardiac/Respiratory: CHF, Hypertension, Hyperlipidemia, Peripheral Vascular Disease, CPAP/BiPAP Home Use, Sleep Apnea Patient History - Cancer: Prostate Patient History - Surgical Procedures: Cancer Surgery, Colonoscopy, T & A, Other , Orthopedic, Urology Patient History - Other: None - Family History Father Family History - Medical: , History Unknown Family History - Cardiac/Respiratory: Pneumonia Family History - Cancer: Lung Mother Family History - Medical: , Other Family History - Cardiac/Respiratory: Pneumonia Family History - Cancer: History Unknown - Social History Living Situations: home Abuse History: No History of abuse Psych History: No pertinent hx Smoking Status: Current every day smoker Alcohol Use: heavy Drug Use: none - Immunizations Immunizations Up to Date: Yes Hx Pneumococcal Vaccination: Yes History of Influenza Vaccine: Yes Physical Exam - Physical Exam General Appearance: Present: wd/wn, alert, lethargic Head Exam: Present: normal inspection, no evidence of injury Eye Exam: Normal inspection: bilateral Ears, Nose, Throat: Present: dry mucous membranes Neck: Present: normal inspection, nontender Respiratory: Present: no respiratory distress, no accessory muscle use, lungs clear Cardiovascular/Chest: Present: regular rate, rhythm, no murmur Gastrointestinal/Abdominal: Present: normal bowel sounds, nontender, nondistended, soft Extremity Exam: Present: extremity edema - +3 bilateral LE Neurological Exam: Present: other - somewhat slow responses but appropriate answers. Falls asleep quickly Skin Exam: Present: other - open wounds, some scabbed on the LE b/l bandages on some wounds no purlence noted. Maggie Coma Scale - Assess Eye Opening: To Voice Motor: Obeys Commands Verbal: Oriented - Total Coma Scale Total: 14 ED Progress - Results and Orders Patient's Lab Results:: I have reviewed the patient's lab results. Results and Orders: Laboratory Tests 02/02/17 02/03/17 02/03/17 23:33 00:10 00:16 WBC 7.6 Hgb 11.8 L Hct 33.8 L Plt Count 220 Sodium 138 Plasma Sodium 139 Potassium 2.3 L* D Chloride 94 L Carbon Dioxide 36.8 H Anion Gap 9.5 BUN 49 H D Creatinine 1.72 H D Est GFR (Non-Af Amer) 42 L D BUN/Creatinine Ratio 28.5 H Random Glucose 132 H Calcium 9.1 Calcium Adj for Albumin 9.3 Magnesium Total Bilirubin 0.6 AST 17 ALT 23 Alkaline Phosphatase 100 Total Protein 7.8 Albumin 3.4 Urine Color Pale yellow Urine Appearance Clear Urine pH 7.0 Ur Specific [place] 1.010 Urine Protein Negative Urine Glucose (UA) Negative Urine Ketones Negative Urine Blood Negative Urine Nitrate Negative Urine Bilirubin Negative Urine Urobilinogen Normal Ur Leukocyte Esterase Negative Urine RBC None seen Urine WBC None seen Ur Epithelial Cells 0-5 Urine Bacteria None seen Urine Culture Comments No culture indicated 02/03/17 02/03/17 02:50 02:50 WBC Hgb Hct Plt Count Sodium Plasma Sodium Potassium 2.5 L Chloride Carbon Dioxide Anion Gap BUN Creatinine Est GFR (Non-Af Amer) BUN/Creatinine Ratio Random Glucose Calcium Calcium Adj for Albumin Magnesium 2.3 Total Bilirubin AST ALT Alkaline Phosphatase Total Protein Albumin Urine Color Urine Appearance Urine pH Ur Specific [place] Urine Protein Urine Glucose (UA) Urine Ketones Urine Blood Urine Nitrate Urine Bilirubin Urine Urobilinogen Ur Leukocyte Esterase Urine RBC Urine WBC Ur Epithelial Cells Urine Bacteria Urine Culture Comments - Vital Signs Patient's Vital Signs:: I have reviewed the patient's vital signs. Vital Signs: Vital Signs 02/02/17 02/02/17 02/02/17 21:47 22:05 22:09 Temperature 36.1 C L Pulse Rate 93 88 89 Respiratory 18 13 Rate Blood Pressure 130/64 123/68 O2 Sat by Pulse 97 96 Oximetry - CT/Ultrasound CT/Ultrasound Narrative: CT head. No acute processes. volume loss appropriate with patient's age. chronic right medial orbital blowout fracture without medial rectus muscle entrapment mucosal thickening in one or more of the sinuses - Progress/Reassessment Chief Complaint: Altered Mental Status Progress Note-Subjective: 02/03/17 04:16 Spoke with Edel ARREDONDO about observation admission, she agrees and will come and see the patient. Departure Clinical Impression: Hypokalemia, Dehydration Altered mental status Qualifiers: Altered mental status type: transient alteration of awareness Qualified Code(s) : R40.4 - Transient alteration of awareness - Departure Disposition: [facility] Condition: Good
[2017-02-02 23:42] LABS: Urine Bilirubin Negative (NEGATIVE); Urine Blood Negative /ul (NEGATIVE); Urine Ketone Negative (NEGATIVE); Urine Nitrite Negative (NEGATIVE); Urine Protein Negative (NEGATIVE); Urine Urobilinogen Normal (NORMAL)
[2017-02-02 23:46] LABS: Urine Appearance Clear; Urine Color Pale Yellow
[2017-02-02 23:47] LABS: Urine Bacteria None Seen; Urine RBC None Seen /hpf (0-5); Urine WBC None Seen /hpf (0-5)
[2017-02-03 00:16] LABS: Hematocrit 33.8 % (42.0-52.0); Hemoglobin 11.8 gm/dL (13.5-18.0); Mean Cell Volume 83.3 fl (78-100); Mean Corpuscular Hemoglobin 29.1 pg (27-31); Mean Corpuscular Hgb Conc 34.9 g/dl (32-36); Mean Platelet Volume 9.3 fl (6.0-9.5); Neutrophil # 5.3 K/mm3 (1.3-6.0); Neutrophil % 70.6 % (42-75.0); Platelet Count 220 K/mm3 (150-450); Red Blood Count 4.06 M/mm3 (4.7-6.0); Red Cell Distribution Width 14.4 % (11.5-14.0); White Blood Count 7.6 K/mm3 (4.0-10.5)
[2017-02-03 00:33] LABS: Albumin * 3.4 gm/dl (3.4-5.0); Anion Gap 9.5 mmol/L (6.8-13.8); BUN/Creatinine Ratio 28.5 (9.0-21.6); Bilirubin, Total 0.6 mg/dL (0.0-1.1); Ca. Corrected For Albumin 9.3 mg/dL (8.4-10.2); Calcium * 9.1 mg/dL (7.9-10.9); Carbon Dioxide 36.8 mmol/L (24-32.6); Total Protein 7.8 gm/dL (6.2-8.2)
[2017-02-03 00:35] LABS: Potassium 2.3 mmol/L (3.4-4.6)
[2017-02-03] MEDS ORDERED: POTASSIUM BICARBONATE/CIT AC 25 MEQ TABLET.EFF PO ONE (00:44)
[2017-02-03] MEDS ORDERED: POTASSIUM CHLORIDE 20 MEQ in NORMAL SALINE 1,000 ML IV PRN ×2 (00:45→00:56)
[2017-02-03] MEDS ORDERED: POTASSIUM BICARBONATE/CIT AC 25 MEQ TABLET.EFF ONE (00:46)
[2017-02-03] MEDS: POTASSIUM CHLORIDE 20 MEQ in NORMAL SALINE 1,000 ML IV PRN ×2 (01:31→07:11)
[2017-02-03 04:28] LABS: Cocaine Ur Negative (NEGATIVE); Urine Barbiturate Negative (NEGATIVE); Urine Benzodiazepines Negative (NEGATIVE); Urine Opiates Negative (NEGATIVE); Urine PCP Negative (NEGATIVE); Urine THC Negative (NEGATIVE)
[2017-02-03] MEDS ORDERED: POTASSIUM CHLORIDE 20 MEQ TABLET.SA PO ONE ×2 (04:48→07:00)
--- NOTE | 2017-02-03 05:45 | HP ---
Chief Complaint - Chief Complaint Date of Service: 02/03/17 Time of Service: 05:27 Chief Complaint: ' Confusion'. Source of HPI- Pt; unreliable, ERP report. History of Present Illness: Mr. Siegel is a 71-yr-old WM pt of Dr. Jonathan Vásquez with a PMH of: DM II, Encephalopathy, HTN & EMELYN. Pt is unable to provide any insight into history of illness and has vague complaints involving feeling dizzy all the time & being forgetful. He says "my family packed my clothes, put me in the car and brought me to the hospital because I was acting like a Zombie." He states that for a longtime now, he finds that he is forgetful about current events. He has no problem recalling events from 20 yrs ago. He states that he finds himself doing odd things. Last week, he says, he put his shoes in the refrigerator. According to ERP, family reported odd behaviour today noted with 'acting like he is cutting things in the air with scissors.' He denies having any symptoms of illness involving N/V, SOB, Coughing, Chest pain, Abdominal pain & Diarrhea. At the ED, the lab. studies were unremarkable except for: K -->2.3 & BUN/CR -->49/ 1.72. The UA was negative of infection. The Head CT did not have any acute findings. Official CXR report is pending. Pt will be admitted under observation for: AMS, Hypokalemia & Acute on Chronic Renal Failure. - Patient's Past Medical History Patient History - Medical: Diabetes Type 2, Obesity, Other Patient History - Cardiac/Respiratory: CHF, Hypertension, Hyperlipidemia, Peripheral Vascular Disease, CPAP/BiPAP Home Use, Sleep Apnea Patient History - Cancer: Prostate Patient History - Surgical Procedures: Cancer Surgery, Colonoscopy, T & A, Other , Orthopedic, Urology Patient History - Other: None - Family History Father Family History - Medical: , History Unknown Family History - Cardiac/Respiratory: Pneumonia Family History - Cancer: Lung Mother Family History - Medical: , Other Family History - Cardiac/Respiratory: Pneumonia Family History - Cancer: History Unknown - Social History Living Situations: home Abuse History: No History of abuse Psych History: No pertinent hx Smoking Status: Current every day smoker Alcohol Use: heavy Drug Use: none - Immunizations Immunizations Up to Date: Yes Hx Pneumococcal Vaccination: Yes History of Influenza Vaccine: Yes Review Of Systems (GEN) - Review of Systems Generalized/Overall Review: Absent: Weakness, Chills, Fever EENTM: Absent: Eye Pain, Ear Discharge, Nose Congestion Respiratory: Absent: Cough, Shortness of Breath, Orthopnea Cardiac: Absent: Chest Pain, Edema, Palpitations, Syncope Abdominal: Absent: Nausea, Vomiting, Hematemesis Genitourinary: Absent: Burning, Itching, Urgency, Hesitancy Musculoskeletal: Absent: Joint Pain, Back Pain, Joint Swelling Neurological: Present: Weakness. Absent: Headache, Anxiety, Depressed Skin: Present: Dryness. Absent: Lesions, Rash Endocrine: Present: Intolerance to Heat. Absent: Intolerance to Cold Misc: All systems neg except as marked Allergies/Adverse Reactions: Allergies Allergy/AdvReac Type Severity Reaction Status Date / Time topiramate [From Topamax] Allergy Intermediate DRUG Verified 01/30/17 13:02 TOXICITY, ENCEPHALOPATHY Home Medications: HOME MEDICATIONS ALPRAZolam [Xanax] 1 mg PO TID PRN 07/10/14 [Last Taken Unknown] Loratadine [Claritin] 10 mg PO DAILY 07/10/14 [Last Taken Unknown] Simvastatin [Zocor] 20 mg PO HS 07/10/14 [Last Taken Unknown] metFORMIN HCL [Glucophage] 1,000 mg PO BID 07/10/14 [Last Taken Unknown] Fluticasone Furoate [Veramyst] 2 sprays NS DAILY 05/24/15 [Last Taken Unknown] buPROPion HCL [Wellbutrin Xl] 150 mg PO DAILY 05/24/15 [Last Taken Unknown] Clotrimazole/Betamet Diprop [Lotrisone Cream] 1 appl TP BID 08/08/16 [Last Taken Unknown] Hydrocortisone Acetate 30 mg RC BID PRN 08/08/16 [Last Taken Unknown] Ipratropium/Albuterol Sulfate [Iprat-Albut 0.5-3(2.5) mg/3 ml] 3 ml IH QID PRN 08/08/16 [Last Taken Unknown] sitaGLIPtin PHOSPHATE [Januvia] 100 mg PO DAILY 08/08/16 [Last Taken Unknown] Pramipexole Di-HCl [Mirapex] 4.5 mg PO HS 08/20/16 [Last Taken Unknown] Metolazone [Zaroxolyn] 5 mg PO DAILY 10/16/16 [Last Taken Unknown] Furosemide [Lasix] 80 mg PO DAILY PRN 01/28/17 [Last Taken Unknown] Potassium Chloride [Klor-Con 10] 30 meq PO DAILY 01/28/17 [Last Taken Unknown] oxyCODONE HCL [Oxycodone HCl] 20 mg PO Q6H 01/28/17 [Last Taken Unknown] traZODone HCL [Desyrel] 50 mg PO HS 01/28/17 [Last Taken Unknown] Exam - Exam Vital Signs: Vital Signs - Last Taken Temp 36.1 C L 02/02/17 21:47 Pulse 82 02/03/17 04:20 Resp 14 02/03/17 04:20 BP 104/45 02/03/17 04:20 Pulse Ox 98 02/03/17 04:20 Constitutional: Present: Alert, Oriented x3, Cooperative, No distress ENT Exam: Present: normal ENT inspection Eye Exam: bilateral eye: normal inspection, PERRL Neck: Present: non-tender, full range of motion, supple Back Exam: Present: normal inspection, no CVA tenderness Breasts: Present: Exam deferred Respiratory: Present: decreased breath sounds, No rales, No wheezing Cardiovascular/Chest: Present: regular rate, rhythm Abdomen: Present: Normal bowel sounds, soft, nontender, obese /Rectal: Present: Exam deferred Extremity: Present: lower extremity edema Skin Exam: Present: other - Hyperpigmentation on BLE. Lymphatic: Present: no adenopathy Neurologic: Present: alert, normal mood/affect Appearance: Present: appropriate appearance, impaired insight Eye contact: Present: cooperative, good eye contact, normal speech Thoughts: Present: normal thought pattern, no apparent hallucination Diagnostic Studies: Laboratory Results WBC 7.6 K/mm3 (4.0-10.5) 02/03/17 00:16 RBC 4.06 M/mm3 (4.7-6.0) L 02/03/17 00:16 Hgb 11.8 gm/dL (13.5-18.0) L 02/03/17 00:16 Hct 33.8 % (42.0-52.0) L 02/03/17 00:16 MCV 83.3 fl (78-100) 02/03/17 00:16 MCH 29.1 pg (27-31) 02/03/17 00:16 MCHC 34.9 g/dl (32-36) 02/03/17 00:16 RDW 14.4 % (11.5-14.0) H 02/03/17 00:16 Plt Count 220 K/mm3 (150-450) 02/03/17 00:16 MPV 9.3 fl (6.0-9.5) 02/03/17 00:16 Immature Gran % (Auto) 0.30 % (0.001-0.429) 02/03/17 00:16 Immature Gran # (Auto) 0.02 K/mm3 (0.000-0.0310) 02/03/17 00:16 Neutrophils % 70.6 % (42-75.0) 02/03/17 00:16 Lymphocytes % 20.1 % (20-51) 02/03/17 00:16 Monocytes % 6.6 % (0.0-9) 02/03/17 00:16 Eosinophils % 2.0 % (0.0-3.0) 02/03/17 00:16 Basophils % 0.4 % (0.0-1.0) 02/03/17 00:16 Nucleated RBC % 0.0 k/mm3 (0-1) 02/03/17 00:16 Neutrophils # 5.3 K/mm3 (1.3-6.0) 02/03/17 00:16 Lymphocytes # 1.5 k/mm3 (1.5-3.5) 02/03/17 00:16 Monocytes # 0.5 k/mm3 (0.0-1.0) 02/03/17 00:16 Eosinophils # 0.2 k/mm3 (0.0-0.7) 02/03/17 00:16 Absolute Basophils 0.0 k/mm3 (0.0-0.1) 02/03/17 00:16 Sodium 138 mmol/L (132-142) 02/03/17 00:10 Plasma Sodium 139 mmol/L (130-142) 02/03/17 00:10 Potassium 2.5 mmol/L (3.4-4.6) L 02/03/17 02:50 Chloride 94 mmol/L (97-106) L 02/03/17 00:10 Carbon Dioxide 36.8 mmol/L (24-32.6) H 02/03/17 00:10 Anion Gap 9.5 mmol/L (6.8-13.8) 02/03/17 00:10 BUN 49 mg/dL (6-23) H D 02/03/17 00:10 Creatinine 1.72 mg/dL (0.4-1.4) H D 02/03/17 00:10 Est GFR (Non-Af Amer) 42 mL/min (60-130) L D 02/03/17 00:10 BUN/Creatinine Ratio 28.5 (9.0-21.6) H 02/03/17 00:10 Random Glucose 132 mg/dL (70-110) H 02/03/17 00:10 Calcium 9.1 mg/dL (7.9-10.9) 02/03/17 00:10 Calcium Adj for Albumin 9.3 mg/dL (8.4-10.2) 02/03/17 00:10 Magnesium 2.3 mg/dL (1.2-2.8) 02/03/17 02:50 Total Bilirubin 0.6 mg/dL (0.0-1.1) 02/03/17 00:10 AST 17 U/L (0-48) 02/03/17 00:10 ALT 23 U/L (19-67) 02/03/17 00:10 Alkaline Phosphatase 100 U/L (50-170) 02/03/17 00:10 Total Protein 7.8 gm/dL (6.2-8.2) 02/03/17 00:10 Albumin 3.4 gm/dl (3.4-5.0) 02/03/17 00:10 Urine Color Pale yellow 02/02/17 23:33 Urine Appearance Clear 02/02/17 23:33 Urine pH 7.0 pH (5.0-7.0) 02/02/17 23:33 Ur Specific [place] 1.010 SP.GR. (1.005-1.030) 02/02/17 23:33 Urine Protein Negative mg/dL (NEGATIVE) 02/02/17 23:33 Urine Glucose (UA) Negative mg/dL (NEGATIVE) 02/02/17 23:33 Urine Ketones Negative mg/dL (NEGATIVE) 02/02/17 23:33 Urine Blood Negative /ul (NEGATIVE) 02/02/17 23:33 Urine Nitrate Negative (NEGATIVE) 02/02/17 23:33 Urine Bilirubin Negative mg/dl (NEGATIVE) 02/02/17 23:33 Urine Urobilinogen Normal EU/dl (NORMAL) 02/02/17 23:33 Ur Leukocyte Esterase Negative /ul (NEGATIVE) 02/02/17 23:33 Urine RBC None seen /hpf (0-5) 02/02/17 23:33 Urine WBC None seen /hpf (0-5) 02/02/17 23:33 Ur Epithelial Cells 0-5 /hpf (0-5) 02/02/17 23:33 Urine Bacteria None seen (NONE) 02/02/17 23:33 Urine Culture Comments No culture indicated 02/02/17 23:33 Urine Opiates Screen Negative (NEGATIVE) 02/03/17 00:01 Barbiturate Screen Negative (NEGATIVE) 02/03/17 00:01 Ur Phencyclidine Scrn Negative (NEGATIVE) 02/03/17 00:01 Urine Amphetamine Negative (NEGATIVE) 02/03/17 00:01 U Benzodiazepines Scrn Negative (NEGATIVE) 02/03/17 00:01 Urine Cocaine Screen Negative (NEGATIVE) 02/03/17 00:01 Urine Marijuana (THC) Negative (NEGATIVE) 02/03/17 00:01 Assessment/Plan - Assessment/Plan (1) Altered mental state Assessment: Pt has had past admission with AMS; etiology unclear. No signs of infection according to the CXR, UA and WBC is in NR. Could be from electrolyte imbalance or polypharmacy (Hold some medications) or Vascular dementia. May consider obtaining an MRI of the Brain. Consider Psych. Consult. Problem: Acute (2) Hypokalemia Assessment: Received replacement of 20 IV and 20 Oral. Will give another KCL IV of 20 meQ & 40 orally. BMP in am. 02/03/17 02/03/17 00:10 02:50 Potassium 2.3 L* D 2.5 L Problem: Acute (3) Acute on chronic renal failure Assessment: Likely due to Diuretics for CHF. Will hold Lasix. Provide gently hydration with IVF. Laboratory Tests 10/17/16 10/20/16 10/29/16 05:50 22:15 10:47 Creatinine 1.60 H 2.10 H D 1.46 H D 12/08/16 12/31/1617 09:59 14:43 00:10 Creatinine 1.41 H 1.30 1.72 H D Problem: Acute (4) Diabetes Assessment: Carb Consistent diet. Accu checks ACHS- Continue Metformin & Januvia Problem: Chronic Qualifiers: Diabetes mellitus type: type 2 (5) HTN (hypertension) Problem: Chronic Qualifiers: Hypertension type: essential hypertension Qualified Code(s): I10 - Essential (primary) hypertension (6) CHF exacerbation Problem: Chronic Qualifiers: Congestive heart failure type: diastolic Qualified Code(s): I50.33 - Acute on chronic diastolic (congestive) heart failure (7) HLD (hyperlipidemia) Problem: Chronic Qualifiers: Hyperlipidemia type: unspecified Qualified Code(s): E78.5 - Hyperlipidemia , unspecified (8) PVD (peripheral vascular disease) Problem: Chronic
[2017-02-03] MEDS ORDERED: ALBUTEROL SULFATE/IPRATROPIUM 3 ML NEBU IH PRN (06:01)
[2017-02-03] MEDS ORDERED: HYDROCORTISONE ACETATE 25 MG SUPP.RECT RC PRN (06:49)
[2017-02-03] MEDS: POTASSIUM CHLORIDE 100 ML IV SCH ×6 (07:18→13:32)
[2017-02-03 07:34] LABS: Anion Gap 9.7 mmol/L (6.8-13.8); BUN/Creatinine Ratio 28.2 (9.0-21.6); Calcium * 8.6 mg/dL (7.9-10.9); Carbon Dioxide 35.8 mmol/L (24-32.6)
[2017-02-03 07:37] LABS: Potassium 2.5 mmol/L (3.4-4.6)
[2017-02-03] MEDS: POTASSIUM CHLORIDE 20 MEQ TABLET.SA PO SCH ×3 (08:34→16:30)
[2017-02-03] MEDS: FLUTICASONE PROPIONATE 120 SPRAY INHALER NS SCH (09:37)
[2017-02-03] MEDS: CLOTRIMAZOLE/BETAMET DIPROP 15 APPL TUBE TP SCH ×2 (09:37→20:34)
[2017-02-03] MEDS: sitaGLIPtin PHOSPHATE 50 MG TABLET PO SCH (09:37)
[2017-02-03] MEDS: ACETAMINOPHEN 500 MG TABLET PO PRN ×2 (13:38→19:23)
[2017-02-03 16:16] LABS: Anion Gap 9.8 mmol/L (6.8-13.8); BUN/Creatinine Ratio 26.3 (9.0-21.6); Calcium * 8.7 mg/dL (7.9-10.9); Carbon Dioxide 33.4 mmol/L (24-32.6); Estimated Creat Clear 42.9; Potassium 3.2 mmol/L (3.4-4.6)
[2017-02-04] MEDS ORDERED: POTASSIUM CHLORIDE 20 MEQ TABLET.SA PO ONE ×2 (06:36→10:41)
[2017-02-04] MEDS: POTASSIUM CHLORIDE 20 MEQ TABLET.SA PO SCH (08:36)
[2017-02-04] MEDS: FLUTICASONE PROPIONATE 120 SPRAY INHALER NS SCH (08:44)
[2017-02-04] MEDS: sitaGLIPtin PHOSPHATE 50 MG TABLET PO SCH (08:44)
[2017-02-04] MEDS: CLOTRIMAZOLE/BETAMET DIPROP 15 APPL TUBE TP SCH (08:44)
[2017-02-04 09:33] LABS: Anion Gap 8.3 mmol/L (6.8-13.8); BUN/Creatinine Ratio 24.8 (9.0-21.6); Calcium * 8.7 mg/dL (7.9-10.9); Estimated Creat Clear 49.2; Potassium 3.3 mmol/L (3.4-4.6)
[2017-02-04] MEDS: ACETAMINOPHEN 500 MG TABLET PO PRN (11:30)
[2017-02-04 14:50] VITALS: BP 112/62
[2017-02-04 15:24] LABS: Anion Gap 7.1 mmol/L (6.8-13.8); BUN/Creatinine Ratio 24.5 (9.0-21.6); Calcium * 8.7 mg/dL (7.9-10.9); Carbon Dioxide 33.9 mmol/L (24-32.6); Estimated Creat Clear 52.7
--- NOTE | 2017-02-04 15:44 | DS ---
(1) Hypokalemia Problem: Acute (2) Mental status change Problem: Acute Qualifiers: Altered mental status type: somnolence Qualified Code(s): R40.0 - Somnolence Description of Stay: Elliott was admitted for confusion, somnolence, and dizziness. His potassium was low and was replaced. He is on several medications that can cause symptoms. For the most part will discontinue all medications except those absolutely needed at this time and then add back if needed. With holding medications and replacing potassium somnolence and dizziness resolved. Procedures Performed: none Discharge Disposition: Home self care Disposition: Home self-care Condition: Good Discharge Activity: Activity as tolerated Discharge Diet: Low salt Referrals: Jonathan Vásquez DO [Primary Care Provider] - One Week Problem Oriented Discharge Instructions to Patient/Family: Hypokalemia Additional Patient Instructions (free text): [facility] courtesy visit at discharge. Please fax orders and face to face upon discharge. Call Dr Santa's office when discharged to reschedule your follow up appointment. Follow up with Dr. Vásquez on 02-11-17 @ 10:00am. Take lasix or metolazone once a day. Do not take these on the same day. Prescriptions (Any new or edited meds): Acetaminophen [Tylenol] 1,000 mg PO Q6H PRN #100 tablet PRN Reason: Mild Pain Potassium Chloride [K-Dur] 40 meq PO DAILY #60 tab Complete Home Medications List: Complete Home Medication List: Simvastatin [Zocor] 20 mg PO HS 07/10/14 Fluticasone Furoate [Veramyst] 2 sprays NS DAILY 05/24/15 Clotrimazole/Betamet Diprop [Lotrisone Cream] 1 appl TP BID 08/08/16 Hydrocortisone Acetate 30 mg RC BID PRN 08/08/16 Ipratropium/Albuterol Sulfate [Iprat-Albut 0.5-3(2.5) mg/3 ml] 3 ml IH QID PRN 08/08/16 Metolazone [Zaroxolyn] 5 mg PO DAILY 10/16/16 Furosemide [Lasix] 80 mg PO DAILY PRN 01/28/17 Acetaminophen [Tylenol] 1,000 mg PO Q6H PRN #100 tablet 02/04/17 Potassium Chloride [K-Dur] 40 meq PO DAILY #60 tab 02/04/17
== END 2017-02-04 16:50 | disposition home or self-care (01) | DRG 641 ==
LOC: ER 21:41 → MS 02-03 04:30 → OBSVTOIN 02-03 08:10
PROVIDERS: ADMIT Nurse Practitioner; ATTEND Family Medicine
DX: E87.6 Hypokalemia (principal); N17.9 Acute kidney failure, unspecified; R40.4 Transient alteration of awareness; E86.0 Dehydration; I12.9 Hypertensive chronic kidney disease with stage 1 through stage 4 chronic kidney disease, or unspecified chronic kidney disease; E11.22 Type 2 diabetes mellitus with diabetic chronic kidney disease; N18.9 Chronic kidney disease, unspecified; E78.5 Hyperlipidemia, unspecified; F17.210 Nicotine dependence, cigarettes, uncomplicated; Z85.46 Personal history of malignant neoplasm of prostate; Z79.84 Long term (current) use of oral hypoglycemic drugs

== ENCOUNTER 2017-05-06 10:24 | Emergency (ER) | payer MEDICARE, OTHER ==
[2017-05-06 11:11] LABS: Hematocrit 37.3 % (42.0-52.0); Hemoglobin 12.3 gm/dL (13.5-18.0); Mean Platelet Volume 9.1 fl (6.0-9.5); Neutrophil % 75.5 % (42-75.0); Platelet Count 218 K/mm3 (150-450); Red Blood Count 4.24 M/mm3 (4.7-6.0); White Blood Count 6.6 K/mm3 (4.0-10.5)
[2017-05-06 11:23] LABS: Albumin * 3.5 gm/dl (3.4-5.0); Anion Gap 10.1 mmol/L (6.8-13.8); BUN/Creatinine Ratio 17.7 (9.0-21.6); Bilirubin, Total 0.5 mg/dL (0.0-1.1); CRP 5.3 mg/dL (0.0-0.9); Ca. Corrected For Albumin 8.5 mg/dL (8.4-10.2); Calcium * 8.4 mg/dL (7.9-10.9); Carbon Dioxide 31.2 mmol/L (24-32.6); Potassium 3.3 mmol/L (3.4-4.6); Total Protein 7.8 gm/dL (6.2-8.2)
--- NOTE | 2017-05-06 11:33 | ERNOTE ---
Lower Extremity HPI - Narrative Date of Service: 05/06/17 - General Lower Extremities Pain: leg: bilateral Time Seen by Provider: 05/06/17 10:50 Source: patient Exam Limitations: no limitations - Immun/Allergies/Home Medications Immunizations: IMMUNIZATION HX Immunizations Up to Date Yes History of Influenza Vaccine Yes Hx Pneumococcal Vaccination Yes Allergies/Adverse Reactions: Allergies Allergy/AdvReac Type Severity Reaction Status Date / Time topiramate [From Topamax] Allergy Intermediate DRUG Verified 05/06/17 10:43 TOXICITY, ENCEPHALOPATHY Home Medications: HOME MEDICATIONS Simvastatin [Zocor] 20 mg PO HS 07/10/14 [Last Taken Unknown] Fluticasone Furoate [Veramyst] 2 sprays NS DAILY 05/24/15 [Last Taken Unknown] Hydrocortisone Acetate 30 mg RC BID PRN 08/08/16 [Last Taken Unknown] Metolazone [Zaroxolyn] 5 mg PO DAILY 10/16/16 [Last Taken Unknown] Furosemide [Lasix] 80 mg PO DAILY PRN 01/28/17 [Last Taken Unknown] Acetaminophen [Tylenol] 1,000 mg PO Q6H PRN #100 tablet 02/04/17 [Last Taken Unknown] Potassium Chloride [K-Dur] 40 meq PO DAILY #60 tab 02/04/17 [Last Taken Unknown] Silver Sulfadiazine [Silvadene] 1 appl TP BID #1 jar 05/06/17 [Last Taken Unknown] Sulfamethoxazole/Trimethoprim [Bactrim Ds] 1 tab PO BID #28 tab 05/06/17 [Last Taken Unknown] - History of Present Illness Narrative: Pt. comes in with c/o BLE leg pain R>L and LLE swelling for a week. Pt. states that he has also had some SOB, but denies any CP, fevers, NVD, but states that a light tubigrip and keeping his feet elevated help some but states that walking or sitting with his feet down and tight tubigrip worsen the symptoms. Pt. states that he has been using gold smith and tubigrip prior to arrival as he has had venous stasis since he had a broken Tib/Fib a couple of years ago. Occurred: last week Method of Injury: Reports: no apparent injury Modifying Factors - (Improves): Reports: rest Modifying Factors - (Worsens): Reports: other - ambulation Associated Symptoms: Reports: other injuries - SOB. Denies: unable to bear weight, dizzy/light headedness, headache, weakness Other Injuries: Reports: none Prior Treament: Reports: recently seen, treated by physician, similar symptoms before. Denies: recently hospitalized, currently on antibiotics Review of Systems - Review of Systems Constitutional: Present: no symptoms reported. Absent: fever, chills, weakness , fatigue, malaise EYE: Present: no symptoms reported ENT: Present: no symptoms reported Respiratory: Present: shortness of breath - intermittent. Absent: cough, wheezing Cardiology: Present: edema - B LE Gastrointestinal/Abdominal: Present: no symptoms reported. Absent: nausea, vomiting, diarrhea, abdominal pain Genitourinary: Present: no symptoms reported. Absent: frequency, decreased urinary output Musculoskeletal: Present: muscle pain - B legs Skin: Present: change in color - B legs. Absent: rash, change in hair/nails Neurological: Present: no symptoms reported. Absent: headache, dizziness/light- headedness, numbness, tingling All Other Systems: All systems neg except as marked - Patient's Past Medical History Patient History - Medical: Diabetes Type 2, Obesity, Other - venous stasis Patient History - Cardiac/Respiratory: CHF, Hypertension, Hyperlipidemia, Peripheral Vascular Disease, CPAP/BiPAP Home Use, Sleep Apnea Patient History - Cancer: Prostate Patient History - Surgical Procedures: Cancer Surgery, Colonoscopy, T & A, Other , Orthopedic, Urology Patient History - Other: None - Family History Father Family History - Medical: , History Unknown Family History - Cardiac/Respiratory: Pneumonia Family History - Cancer: Lung Mother Family History - Medical: , Other Family History - Cardiac/Respiratory: Pneumonia Family History - Cancer: History Unknown - Social History Living Situations: home Abuse History: No History of abuse Psych History: No pertinent hx Smoking Status: Current every day smoker Alcohol Use: occasionally Drug Use: none - Immunizations Immunizations Up to Date: Yes Hx Pneumococcal Vaccination: Yes History of Influenza Vaccine: Yes Physical Exam - Physical Exam General Appearance: Present: wd/wn, alert, no apparent distress Head Exam: Present: normal inspection, no evidence of injury, no tenderness w palpation Eye Exam: Normal inspection: bilateral Ears, Nose, Throat: Present: normal ENT inspection, normal pharynx Neck: Present: normal inspection, nontender, supple, full range of motion. Absent: lymphadenopathy (R), lymphadenopathy (L) Respiratory: Present: no respiratory distress, no accessory muscle use, chest nontender, lungs clear, decreased breath sounds. Absent: rales, rhonchi, wheezing Cardiovascular/Chest: Present: regular rate, rhythm, no murmur, normal peripheral pulses Gastrointestinal/Abdominal: Present: normal bowel sounds, nontender, no organomegaly, distended Back Exam: Present: normal inspection Extremity Exam: Present: normal range of motion, calf tenderness - LLE, other - LLE homans pos.. Absent: joint redness, joint swelling Neurological Exam: Present: alert, oriented, normal mood/affect, no motor/ sensory deficits, dye range feeder II-XII nml as tested, normal cerebellar test Skin Exam: Present: other - hemosiderin staining with ketosis ED Progress - Date and Time Seen: Date and Time: 05/06/17 16:[address] Vásquez and He recommends starting abx and getting labs on thursday and Follow up on Thursday as this is close to pt. baseline and he is requesting to be treated outpatient. - Results and Orders Patient's Lab Results:: I have reviewed the patient's lab results. - Vital Signs Patient's Vital Signs:: I have reviewed the patient's vital signs. Vital Signs: Vital Signs 05/06/17 10:31 Temperature 36.2 C L Pulse Rate 100 Respiratory 18 Rate Blood Pressure 142/91 O2 Sat by Pulse 100 Oximetry - EKG EKG: LBBB, unchanged from - previous, other - Sinus tach L axis deviation EKG read: Interp. by az - CT/Ultrasound CT/Ultrasound Narrative: LLE US negative for DVT CT chest CTA Chest: Pulmonary Arteries: Diagnostic Quality (for pulmonary arteries): Opacification of the pulmonary arterial branches is adequate. The breath hold is adequate. There is streak artifact from contrast material within the superior vena cava, which affects the adjacent pulmonary arteries. No definite filling defects are noted to suggest pulmonary thromboembolism. No definite axial CT image findings of right heart strain. Aorta: Opacification of the thoracic aorta is suboptimal for angiographic evaluation but no definite focal finding is seen. Atherosclerotic vascular calcifications noted throughout. Multiple artifacts related to cardiac motion and streak artifact from contrast in the adjacent superior vena cava noted. Mediastinum: Patient has diffuse mediastinal lymphadenopathy, with enlarged lymph nodes noted along the right paratracheal, bilateral hilar, subcarinal, prevascular regions of the mediastinum. Heart: No significant pericardial effusion noted. Moderate cardiomegaly, with cardiac chamber enlargement noted affecting both the ventricles and the atria. Coronary arterial vascular calcifications noted. Lung Parenchyma: Bilateral diffuse interlobular septal thickening noted especially at the lung bases. There is no definite signs of suspicious spiculated mass or consolidation. The patient does have a pulmonary nodule in the right middle lobe, best seen on series 7 image 66 measuring 5.5 mm in greatest dimension. Calcified nodules of the medial basal segment of the left lower lobe likely from prior granulomatous disease. Central Airways: The trachea appears to be patent. Patient has diffuse bronchial wall thickening diffusely throughout the upper and lower lung zones. There is no definite signs of bronchiectasis. There is opacification of the lateral and posterior basal segmental bronchi of the right lower lobe suggestive of potential mucus plugging. Pleural Spaces: Trace bilateral pleural effusions noted. No definable pneumothorax. Bones: Bones are grossly intact. Degenerative changes of the spine noted. Multiple old left-sided rib fractures noted. Chest Wall/Axillae: Anterior chest wall is grossly unremarkable. Axillary regions are also grossly normal. Upper Abdomen: Visualized portions of the abdomen demonstrates enlarged appearance of the liver, and spleen. There is a small low-density lesion at the left hepatic lobe near the periphery, stable suggestive of a likely benign cyst. There is a cyst in the upper pole left kidney. IMPRESSION: 1. Negative for acute pulmonary thromboembolism. 2. Suboptimal opacification of the thoracic aorta for angiographic evaluation without obvious acute findings. Thoracic aortic atherosclerotic disease. 3. Diffuse interlobular septal thickening, trace bilateral pleural effusions, and cardiomegaly. Correlate clinically for congestive heart failure. Other considerations include diffuse pneumonitis or lymphangitic spread of tumor. 4. Diffuse bronchial wall thickening. Likely mucus plugging of the right lower lobe basal segmental bronchi. Correlate clinically for acute or chronic bronchitis or reactive airways disease. Also consider COPD. Potential endobronchial lesion cannot be entirely ruled out. 5. Incidental 5.5 mm pulmonary nodule in the right middle lobe. Recommend follow -up chest CT as per Fleischner Society recommendations. Please see below for additional details. 6. Incidental note of partially visualized hepatosplenomegaly. Consider additional imaging of the abdomen. 7. Nonspecific mediastinal lymphadenopathy. Correlate clinically for infection or noninfectious inflammatory process such as psychosis. Also consider metastatic malignancy to include lymphoma. 8. Additional comments are as above. Recommendations: Recommend follow-up chest CT in 3 months to follow up for the mediastinal lymphadenopathy, and potential endobronchial findings. Correlate clinically for infection or malignancy. Electronically signed by Gregory Meredith M.D.. - Progress/Reassessment Chief Complaint: Lower Extremity Pain/ Injury Progress:: Unchanged Departure Clinical Impression: Cellulitis and abscess of foot, Venous insufficiency (chronic) (peripheral) COPD (chronic obstructive pulmonary disease) Qualifiers: COPD type: unspecified COPD Qualified Code(s): J44.9 - Chronic obstructive pulmonary disease, unspecified Congestive heart failure Qualifiers: Congestive heart failure type: unspecified Congestive heart failure chronicity : chronic Qualified Code(s): I50.9 - Heart failure, unspecified - Departure Disposition: Home self-care Condition: Good Instructions: Heart Failure, [id number], Cellulitis, Adult, [id number], Chronic Obstructive Pulmonary Disease, [id number] Additional Instructions: Please follow up on Thursday for repeat labs and Dr Vásquez on Thursday please return to the ER if you worsen. Referrals: Jonathan Vásquez DO [Primary Care Provider] - Prescriptions: Silver Sulfadiazine [Silvadene] 1 appl TP BID #1 jar Sulfamethoxazole/Trimethoprim [Bactrim Ds] 1 tab PO BID #28 tab
--- NOTE | 2017-05-06 15:11 | OR ---
Anesthesia Procedure Note - Anesthesia Procedure Note Date of Service: 05/06/17 Narrative: Vital Signs - Last Taken Temp 36.2 C L 05/06/17 10:31 Pulse 86 05/06/17 13:00 Resp 18 05/06/17 12:30 BP 129/82 05/06/17 13:00 Pulse Ox 100 05/06/17 13:00 O2 Oxygen Delivery Method Room Air 05/06/17 15:06 ANESTHESIA PROCEDURE NOTE Date of Procedure: 05/06/2017 Time of procedure: 1445. Performed by: MARIA ELENA Morales CRNA, MSN Preprocedure diagnosis: Blood clot, lack of venous access. Post procedure diagnosis: Same. Procedure: Venipuncture for IV access. Indications: Neck of venous access after multiple staff attempts to establish IV. Findings: See below. Details of the procedure: The patient was prepped with ChloraPrep, 0.1 mL of 1% lidocaine solution was injected at the intended IV site after viewing basillic vein on ultrasound. A #18-gauge IV was established with ultrasound guidance, flushed and secured. EBL: Minimal. Fluids: N/A. Specimen: N/A. Post procedure condition: The patient tolerated the procedure well. No complications were noted. Thank you for this consultation. Dillon Kamara CRNA, STRIPER, MSN
[2017-05-06] MEDS ORDERED: NORMAL SALINE 1,000 ML IV ONE (15:16)
[2017-05-06] MEDS ORDERED: FUROSEMIDE 10 MG/ML VIAL IV ONE (15:57)
[2017-05-06] MEDS ORDERED: ACETAMINOPHEN 500 MG TABLET PO ONE (15:58)
[2017-05-06] MEDS ORDERED: POTASSIUM CHLORIDE 20 MEQ TABLET.SA PO ONE (15:58)
[2017-05-06] MEDS ORDERED: POTASSIUM CHLORIDE 20 MEQ TABLET.SA ONE (16:03)
[2017-05-06] MEDS ORDERED: FUROSEMIDE 10 MG/ML VIAL ONE (16:03)
[2017-05-06 17:32] VITALS: BP 139/81
== END 2017-05-06 17:11 | disposition home or self-care (01) ==
LOC: ER 10:24
DX: L03.116 Cellulitis of left lower limb (principal); L02.416 Cutaneous abscess of left lower limb; I87.2 Venous insufficiency (chronic) (peripheral); R91.1 Solitary pulmonary nodule; J44.9 Chronic obstructive pulmonary disease, unspecified; I11.0 Hypertensive heart disease with heart failure; I50.9 Heart failure, unspecified; E66.9 Obesity, unspecified; E11.51 Type 2 diabetes mellitus with diabetic peripheral angiopathy without gangrene; E78.5 Hyperlipidemia, unspecified; C61 Malignant neoplasm of prostate; F17.210 Nicotine dependence, cigarettes, uncomplicated; Z68.41 Body mass index [BMI] 40.0-44.9, adult